=== PATIENT | male | born 1995 | race Caucasian/White ===

== ENCOUNTER 2020-09-10 12:27 | Outpatient (REF) | payer MEDICAID, SELFPAY ==
--- NOTE | ~2020-09-10 | US_ITS ---
EXAMINATION: US SOFT TISSUE HEAD AND/OR NECK CLINICAL INFORMATION: Lump left skull for months. COMPARISON: None TECHNIQUE: Soft tissue ultrasound over the left lateral frontal bone. FINDINGS: No abnormal soft tissue mass or fluid collection in the region of the patient's palpable findings. No lymphadenopathy. No inflammatory change. US/US soft tiss head and/or neck IMPRESSION: Unremarkable examination.
== END 2020-09-10 12:28 | disposition home or self-care (01) ==
LOC: HO.US 12:27
PROVIDERS: PCP Nurse Practitioner Family; Visit Provider Nurse Practitioner Family
DX: R22.0 Localized swelling, mass and lump, head (principal)
CPT/HCPCS: 76536

== ENCOUNTER → 2020-10-16 06:32 | Day surgery (SDC) | payer MEDICAID, SELFPAY ==
--- NOTE | 2020-10-14 13:34 | HO.ANESPROP2 ---
Documented by User: Randa Guzman 10/14/20 13:35 HPI - Anesthesia Eval Consult details Narrative: 25yo M MRI with Anesthesia,brain with contrast developmental delay PMFSH Past Medical History Medical History ADD (attention deficit disorder) Asthma Cognitive developmental delay Epistaxis Insomnia Social History Social History Advance Directives: No Advance Directives Information Provided: Yes Meds Allergies Allergy/AdvReac Type Severity Reaction Status Date / Time Penicillins Allergy Intermediate SWELLING Unverified 09/10/20 12:33 methylphenidate Allergy Unknown Verified 10/10/20 16:52 [From Concerta] Home Medications Medication Instructions Recorded Confirmed Last Taken Type acetaminophen 1,000 mg PO Q6H PRN 10/10/20 10/10/20 Unknown History albuterol sulfate 2 puff INHALATION Q4-6H PRN 10/10/20 10/10/20 Unknown History albuterol sulfate 2.5 mg INHALATION Q4-6H PRN 10/10/20 10/10/20 Unknown History calcium carbonate [Tums E-X] 300 mg PO BID 10/10/20 10/10/20 Unknown History cetirizine [Zyrtec] 10 mg PO DAILY 10/10/20 10/10/20 Unknown History cholecalciferol (vitamin D3) 50 mcg PO DAILY 10/10/20 10/10/20 Unknown History [Vitamin D3] citalopram [Celexa] 10 mg PO DAILY 10/10/20 10/10/20 Unknown History dextroamphetamine-amphetamine 30 mg PO DAILY 10/10/20 10/10/20 Unknown History [Adderall] fluticasone propionate [Flonase 2 spray INTRANASAL DAILY 10/10/20 10/10/20 Unknown History Allergy Relief] fluticasone propionate [Flovent 2 puff INHALATION BID 10/10/20 10/10/20 Unknown History HFA] multivitamin 1 tab PO DAILY 10/10/20 10/10/20 Unknown History omeprazole 20 mg PO DAILY 10/10/20 10/10/20 Unknown History trazodone 100 mg PO BEDTIME 10/10/20 10/10/20 Unknown History Exam Exam Date and Time: October 14, 2020 1334 Assessment and Plan Assessment Anesthesia Assessment: Chart Reviewed Documented by User: Марина Hutson 10/16/20 07:09 PMF Past Medical History Medical History ADD (attention deficit disorder) Asthma Cognitive developmental delay Epistaxis Insomnia Social History Social History Advance Directives: No Advance Directives Information Provided: Yes Meds Allergies Allergy/AdvReac Type Severity Reaction Status Date / Time Penicillins Allergy Intermediate SWELLING Unverified 09/10/20 12:33 methylphenidate Allergy Unknown Verified 10/10/20 16:52 [From Concerta] Home Medications Medication Instructions Recorded Confirmed Last Taken Type acetaminophen 1,000 mg PO Q6H PRN 10/10/20 10/10/20 Unknown History albuterol sulfate 2 puff INHALATION Q4-6H PRN 10/10/20 10/10/20 Unknown History albuterol sulfate 2.5 mg INHALATION Q4-6H PRN 10/10/20 10/10/20 Unknown History calcium carbonate [Tums E-X] 300 mg PO BID 10/10/20 10/10/20 Unknown History cetirizine [Zyrtec] 10 mg PO DAILY 10/10/20 10/10/20 Unknown History cholecalciferol (vitamin D3) 50 mcg PO DAILY 10/10/20 10/10/20 Unknown History [Vitamin D3] citalopram [Celexa] 10 mg PO DAILY 10/10/20 10/10/20 Unknown History dextroamphetamine-amphetamine 30 mg PO DAILY 10/10/20 10/10/20 Unknown History [Adderall] fluticasone propionate [Flonase 2 spray INTRANASAL DAILY 10/10/20 10/10/20 Unknown History Allergy Relief] fluticasone propionate [Flovent 2 puff INHALATION BID 10/10/20 10/10/20 Unknown History HFA] multivitamin 1 tab PO DAILY 10/10/20 10/10/20 Unknown History omeprazole 20 mg PO DAILY 10/10/20 10/10/20 Unknown History trazodone 100 mg PO BEDTIME 10/10/20 10/10/20 Unknown History Exam Airway Mallampati Class: II TM Dist: >3cm Neck ROM: Full Assessment and Plan Assessment Anesthesia Assessment: Anesthesia Plan Discussed and Chart Reviewed Final Anesthetic Review NPO: Yes ASA Class: II Final Preanesthetic Review: No Changes in Pt Med Stat, Meds/Allgs Chart Reviewed, Consent Obtained/Reviewed and Anes Risks/Benef Reviewed Patient Risk: Low Procedure Risk: Low Assessment/Block/Sedation in SS: Assess/Block/Sedation-SS Anesthetic Plan Anesthetic Plan: GA Disposition: Standard PACU
--- NOTE | ~2020-10-16 | MR_ITS ---
EXAMINATION: MR BRAIN WITHOUT AND WITH CONTRAST CLINICAL INFORMATION: Migraine headaches. Lump on skull. COMPARISON: No relevant prior imaging. TECHNIQUE: Multiplanar MR imaging of the brain was performed without and with contrast. A total of 4.5 mL Gadavist was utilized for this examination. FINDINGS: Postcontrast images reveal no abnormal mass or enhancement within the intracranial compartment. No intracranial mass effect or midline shift. No abnormal extra-axial collection. Lateral and third ventricles are normal. No hydrocephalus. Midline structures including the cervicomedullary junction are normal. No acute bone marrow signal changes. There is no acute territorial infarct. No pathological magnetic susceptibility artifact. Intracranial vascular flow voids are maintained. There is no mastoid or middle ear effusion. Mild paranasal sinus disease primarily affecting the ethmoid air cells. Globes and orbits are symmetric. MR/MR head/brain wo/w con IMPRESSION: Normal brain MRI.
[2020-10-16 07:04] VITALS: BP 106/61; PULSE 107; RESP 16; TEMP 36.4; O2SAT 98; BMI 22.6
[2020-10-16] MEDS: Lactated Ringers 1,000 ML 100 ML IVCONT (07:19)
[2020-10-16 09:11] VITALS: BP 101/57; PULSE 77; RESP 20; TEMP 36.4; O2SAT 99
[2020-10-16 09:17] VITALS: BP 104/61; PULSE 79; RESP 17; O2SAT 99
[2020-10-16 09:22] VITALS: BP 103/61; PULSE 78; RESP 16; O2SAT 100
[2020-10-16 09:26] VITALS: BP 103/67; PULSE 90; RESP 17; O2SAT 100
[2020-10-16 09:41] VITALS: BP 103/64; PULSE 79; RESP 16; TEMP 36.5; O2SAT 100
== END | disposition home or self-care (01) ==
PROVIDERS: Radiology Diagnostic Radiology; PCP Nurse Practitioner Family; Visit Provider Nurse Practitioner Family
DX: G43.109 Migraine with aura, not intractable, without status migrainosus (principal); R22.0 Localized swelling, mass and lump, head; R04.0 Epistaxis; F98.8 Other specified behavioral and emotional disorders with onset usually occurring in childhood and adolescence; F81.9 Developmental disorder of scholastic skills, unspecified; G47.01 Insomnia due to medical condition; J45.909 Unspecified asthma, uncomplicated; Z79.51 Long term (current) use of inhaled steroids; Z79.899 Other long term (current) drug therapy; Z88.0 Allergy status to penicillin; Z88.8 Allergy status to other drugs, medicaments and biological substances
CPT/HCPCS: 70553; A9585; J0171; J0461; J2250; J2370; J2405

== ENCOUNTER 2021-03-16 10:11 | Emergency (ER) | payer MEDICAID, SELFPAY ==
--- NOTE | ~2021-03-16 | CT_ITS ---
EXAMINATION: CT HEAD WITHOUT CONTRAST CLINICAL INFORMATION: Altered mental status change COMPARISON: None TECHNIQUE: Contiguous axial imaging was performed from the skull base to vertex without intravenous administration of contrast. This CT examination was performed using dose optimization techniques as appropriate, variously including the following: *Automated exposure control *Adjustment of mA and/or kV according to patient size (this includes techniques or standardized protocols for targeted exams where dose is matched to indication/reason for exam; i.e. extremities or head) *Use of iterative reconstruction technique DLP: 716 mGy-cm FINDINGS: There is no evidence of acute intracranial hemorrhage or territorial infarction. No abnormal mass effect or midline shift is seen. Guidry to white matter differentiation is well preserved. No extra-axial fluid collections are identified. The ventricles are normal in size. There is no abnormal attenuation within the brain parenchyma. The osseous structures and soft tissues are normal. The mastoid air cells and visualized portions of the paranasal sinuses are well aerated. CT/CT head/brain wo con IMPRESSION: No acute intracranial process seen
[2021-03-16 10:23] VITALS: BP 107/64; PULSE 115; RESP 16; TEMP 36.8; O2SAT 97; BMI 24.3
--- NOTE | 2021-03-16 11:16 | ED_ITS ---
HPI - General Adult General Chief complaint: General Medical Stated complaint: nose bleed Time Seen by Provider: 03/16/21 11:16 Source: patient Mode of arrival: ambulatory Limitations: no limitations History of Present Illness HPI narrative: This is a 25 years old patient with history of mental retardation presented to the emergency department because left epistaxis. And the mother also seems to think that he has been more confused. Denies any fever ,chills,vomiting Onset (ago): day(s) (2) Radiation: non-radiation Severity: moderate Quality: other (bleeding) Pain Consistency: constant Relieving factors: none Exacerbating factors: none Related Data Home Medications Medication Instructions Recorded Confirmed acetaminophen 500 mg tablet 1,000 mg PO Q6H PRN 10/10/20 10/10/20 albuterol sulfate 2.5 mg INHALATION Q4-6H PRN 10/10/20 10/10/20 albuterol sulfate 90 mcg/actuation 2 puff INHALATION Q4-6H PRN 10/10/20 10/10/20 aerosol inhaler calcium carbonate 300 mg (750 mg) 300 mg PO BID 10/10/20 10/10/20 chewable tablet (Tums E-X) cetirizine 10 mg tablet (Zyrtec) 10 mg PO DAILY 10/10/20 10/16/20 cholecalciferol (vitamin D3) 50 50 mcg PO DAILY 10/10/20 10/10/20 mcg (2,000 unit) capsule (Vitamin D3) citalopram 10 mg tablet (Celexa) 10 mg PO DAILY 10/10/20 10/10/20 dextroamphetamine-amphetamine 30 30 mg PO DAILY 10/10/20 10/10/20 mg tablet (Adderall) fluticasone propionate 44 2 puff INHALATION BID 10/10/20 10/10/20 mcg/actuation HFA aerosol inhaler (Flovent HFA) fluticasone propionate 50 2 spray INTRANASAL DAILY 10/10/20 10/10/20 mcg/actuation nasal spray,suspension (Flonase Allergy Relief) multivitamin 1 tab PO DAILY 10/10/20 10/10/20 omeprazole 20 mg capsule,delayed 20 mg PO DAILY 10/10/20 10/10/20 release trazodone 100 mg tablet 100 mg PO BEDTIME 05/20/21 05/20/21 Previous Rx's Medication Instructions Recorded sulfamethoxazole 800 1 tab PO BID #10 tab 03/16/21 mg-trimethoprim 160 mg tablet (Bactrim DS) Allergies Allergy/AdvReac Type Severity Reaction Status Date / Time Penicillins Allergy Intermediate SWELLING Verified 10/16/20 07:10 methylphenidate Allergy Unknown Verified 10/10/20 16:52 [From Concerta] Review of Systems Review of Systems: Yes all other systems are reviewed and are negative Constitutional: Constitutional: Denies fever(s) Cardiovascular: Cardiovascular: Denies dyspnea Respiratory: Respiratory: Denies dyspnea Gastrointestinal: Gastrointestinal: Denies abdominal pain [facility] Past Medical History Attestation statement: The following information was validated with the patient. Medical History ADD (attention deficit disorder) Asthma Cognitive developmental delay Epistaxis Insomnia Social History Social History Advance Directives: No Physical Exam Vital Signs: Vital Signs: Last Vital Signs Temp 98.3 F 03/16/21 10:23 Pulse 98 03/16/21 12:00 Resp 16 03/16/21 12:00 BP 123/75 03/16/21 12:00 Pulse Ox 99 03/16/21 12:00 Body Mass Index 24.3 Const: General: cooperative Nutritional Appearance: average body habitus HENMT: Head: Yes normal to inspection General nose exam: Epistaxis present on the left Mouth: Normal oral and palatal mucosa present Neck: Neck: Yes normal visual inspection and Yes full ROM Chest: Chest palpation & inspection: normal inspection of the chest Resp: Effort & Inspection: normal respiratory effort Auscultation: clear to auscultation bilaterally Cardio: Jugular venous distension: no JVD Rate: regular rate GI: Inspection: Yes normal to inspection Palpation (GI): Soft to palpation, not firm and nontender Skin: General skin exam: no rashes or lesions noted, elasticity normal and turgor normal Rashes: no rashes Course Course Course Narrative: nose was packed with Rapid ryno,labs obatined OK ,mother was concerned about confusion but neuro exan is normal and head ct negative and labs ok. will d/c pt home mother already has appointment with [facility] will call in am as well to let them know that nose was packed. Pt has alllergy to PCN nd interation meds for macrolide will prescribe Batrim because packing on Procedures Epistaxis Control Time Out Performed: Yes Nostril: Yes left Nose prepped with: Yes lidocaine Direct inspection method: Yes nasal speculum Clots removed by: Yes blowing nose Epistaxis treatment: Yes nasal tampon Results of treatment: Yes bleeding controlled Complications: Yes none Medical Decision Making Lab Data Result diagrams: 03/16/21 11:43 03/16/21 11:43 Labs: Lab Results 03/16/21 03/16/21 03/16/21 Range/Units 11:43 11:43 11:43 WBC 4.2 L (4.8-10.8) X10*3/uL RBC 4.25 L (4.60-5.80) X10*6/uL Hgb 13.7 L (14.0-18.0) g/dl Hct 38.1 L (42-52) % MCV 89.6 (80-98) fL MCH 32.2 (27.0-33.0) pg MCHC 36.0 (31.0-36.0) g/dl RDW 11.1 (11.0-16.0) % Plt Count 183 (160-400) X10*3/uL MPV 10.7 (9.4-12.4) fL Immature Gran % (Auto) 0.5 H (0.0-0.4) % Neut % (Auto) 52.6 (45-73) % Lymph % (Auto) 30.9 (20-40) % Polk % (Auto) 11.7 H (2-11) % Eos % (Auto) 3.6 (0-4) % Baso % (Auto) 0.7 (0-2) % Lymph # (Auto) 1.3 (1.2-4.9) X10*3/uL [place] # (Auto) 0.5 (0.1-1.2) X10*3/uL Eos # (Auto) 0.2 (0.0-0.4) X10*3/uL Baso # (Auto) 0.0 (0.0-0.2) X10*3/uL Abs Immat Gran (auto) 0.02 (0.00-0.03) X10*3/uL Absolute Neuts (auto) 2.2 (2.0-8.3) X10*3/uL Absolute Nucleated RBC 0.000 (0.0-0.012) X10*3/uL Nucleated RBC % (auto) 0.0 (0.0-0.2) /100WBC PT 11.6 (9.9-13.0) SEC INR 1.0 (0.9-1.1) APTT 32.0 (24.1-38.0) SEC Sodium 139 (135-145) mmol/L Potassium 3.9 (3.3-5.1) mmol/L Chloride 104 (96-108) mmol/L Carbon Dioxide 29 (22-29) mmol/L Anion Gap 10 L (12-20) BUN 17 H (9-16) mg/dL Creatinine 1.20 (0.5-1.4) mg/dL Estim Creat Clear Calc 90.2 Estimated GFR > 60 Random Glucose 97 (60-115) mg/dL Calcium 9.5 (8.4-10.2) mg/dL Total Bilirubin 0.8 (0.0-1.0) mg/dL AST 23 (5-37) U/L ALT 16 (0-40) U/L Alkaline Phosphatase 62 (39-117) U/L Total Protein 6.6 (6.5-8.0) g/dL Albumin 4.3 (3.5-5.0) g/dL Imaging Data CT scan - head: Radiologist's impression: e (this includes techniques or standardized protocols for targeted exams where dose is matched to indication/reason for exam; i.e. extremities or head) *Use of iterative reconstruction technique DLP: 716 mGy-cm FINDINGS: There is no evidence of acute intracranial hemorrhage or territorial infarction. No abnormal mass effect or midline shift is seen. Guidry to white matter differentiation is well preserved. No extra-axial fluid collections are identified. The ventricles are normal in size. There is no abnormal attenuation within the brain parenchyma. The osseous structures and soft tissues are normal. The mastoid air cells and visualized portions of the paranasal sinuses are well aerated. ? CT/CT head/brain wo con IMPRESSION: No acute intracranial process seen Dictated By: Shree Hampton MD Signed By: <Electronically signed by Shree Hampton MD in OV> 10/24/21 1244 DD/ 1132 Discharge Plan Discharge Clinical Impression: Epistaxis Patient Disposition: Home, Self-Care Instructions: Nosebleed (ED) Additional Instructions: keep pakcking on,follow up with your ENT or you can call Dr Kapoor.packing need to be removed in 3-4 Days.Take antibiotic because packing Prescriptions: New sulfamethoxazole-trimethoprim [Bactrim DS] 800-160 mg tablet 1 tab PO BID Qty: 10 RF: 0 No Action multivitamin Tablet 1 tab PO DAILY RF: 0 albuterol sulfate 2.5 mg /3 mL (0.083 %) Solution For Nebulization 2.5 mg INHALATION Q4-6H PRN (Reason: Shortness Of Breath Or Wheezing) RF: 0 citalopram [Celexa] 10 mg Tablet 10 mg PO DAILY RF: 0 acetaminophen 500 mg Tablet 1,000 mg PO Q6H PRN (Reason: Pain) RF: 0 dextroamphetamine-amphetamine [Adderall] 30 mg Tablet 30 mg PO DAILY RF: 0 trazodone 100 mg Tablet 100 mg PO BEDTIME RF: 0 Flovent HFA 44 mcg/actuation Hfa Aerosol Inhaler 2 puff INHALATION BID RF: 0 omeprazole 20 mg Capsule,Delayed Release(Dr/Ec) 20 mg PO DAILY RF: 0 albuterol sulfate 90 mcg/actuation Hfa Aerosol Inhaler 2 puff INHALATION Q4-6H PRN (Reason: Shortness Of Breath Or Wheezing) RF: 0 fluticasone propionate [Flonase Allergy Relief] 50 mcg/actuation [place],Suspension 2 spray INTRANASAL DAILY RF: 0 cetirizine [Zyrtec] 10 mg Tablet 10 mg PO DAILY RF: 0 calcium carbonate [Tums E-X] 300 mg (750 mg) Tablet,Chewable 300 mg PO BID RF: 0 cholecalciferol (vitamin D3) [Vitamin D3] 50 mcg (2,000 unit) Capsule 50 mcg PO DAILY RF: 0 Referrals: Xu Kapoor [Physician] - 2 days
[2021-03-16] MEDS: Lidocaine HCl Viscous 2 % 15 ML SOLUTION MUCOUS MEM (11:37)
[2021-03-16 11:52] LABS: MANUAL DIFF FLAG NO
[2021-03-16 11:53] LABS: Basophils Percent Auto 0.7 % (0-2); Eosinophils Absolute Auto 0.2 X10*3/uL (0.0-0.4); Eosinophils Percent Auto 3.6 % (0-4); Hematocrit 38.1 % (42-52); Hemoglobin 13.7 g/dl (14.0-18.0); Imm Gran Abs Auto 0.02 X10*3/uL (0.00-0.03); Imm Gran Pct Auto 0.5 % (0.0-0.4); Lymphocytes Absolute Auto 1.3 X10*3/uL (1.2-4.9); Lymphocytes Percent Auto 30.9 % (20-40); Mean Corpuscular Hemoglobin 32.2 pg (27.0-33.0); Mean Corpuscular Volume 89.6 fL (80-98); Mean Platelet Volume 10.7 fL (9.4-12.4); Monocytes Absolute Auto 0.5 X10*3/uL (0.1-1.2); Monocytes Percent Auto 11.7 % (2-11); Neutrophils Absolute Auto 2.2 X10*3/uL (2.0-8.3); Neutrophils Percent Auto 52.6 % (45-73); Platelet Count 183 X10*3/uL (160-400); Red Blood Count 4.25 X10*6/uL (4.60-5.80); Red Cell Distribution Width 11.1 % (11.0-16.0); White Blood Count 4.2 X10*3/uL (4.8-10.8)
[2021-03-16 11:58] LABS: Prothrombin Time 11.6 SEC (9.9-13.0)
[2021-03-16 12:00] VITALS: BP 123/75; PULSE 98; RESP 16; O2SAT 99
[2021-03-16 12:08] LABS: Alanine Aminotransferase 16 U/L (0-40); Albumin Level 4.3 g/dL (3.5-5.0); Alkaline Phosphatase 62 U/L (39-117); Anion Gap 10 (12-20); Aspartate Amino Transferase 23 U/L (5-37); Bilirubin Total 0.8 mg/dL (0.0-1.0); Blood Urea Nitrogen 17 mg/dL (9-16); Calcium 9.5 mg/dL (8.4-10.2); Carbon Dioxide 29 mmol/L (22-29); Chloride 104 mmol/L (96-108); Creatinine Clr Calc Pharmacy 90.2; Estimated Glomerular Filt Rate > 60; Glucose Random 97 mg/dL (60-115); Potassium 3.9 mmol/L (3.3-5.1); Sodium 139 mmol/L (135-145); Total Protein 6.6 g/dL (6.5-8.0)
== END 2021-03-16 13:52 | disposition home or self-care (01) ==
PROVIDERS: Emergency Provider Emergency Medicine; PCP Nurse Practitioner Primary Care
DX: R04.0 Epistaxis (principal); R41.82 Altered mental status, unspecified; Z79.899 Other long term (current) drug therapy
CPT/HCPCS: 30901; 36415; 70450; 80053; 85025; 85610; 85730; 99284

== ENCOUNTER 2021-03-20 08:44 | Emergency (ER) | payer MEDICAID, SELFPAY ==
[2021-03-20 08:53] VITALS: BP 109/71; PULSE 100; RESP 18; TEMP 36.6; O2SAT 98; BMI 25.0
--- NOTE | 2021-03-20 09:10 | ED_ITS ---
HPI - General Adult General Chief complaint: General Medical Stated complaint: remove nasal packing Time Seen by Provider: 03/20/21 09:10 Source: patient Limitations: no limitations and language barrier (technology resource teacher used) History of Present Illness HPI narrative: Patient returns to the ER to have nasal packing removed of the left near. Packing was placed on Wednesday. Patient has follow-up appointment with ENT on March 25. Patient and family states no recent bleeding around the packing or in the back of his throat. No nausea vomiting fever chills or other complaints at this time. Related Data Home Medications Medication Instructions Recorded Confirmed acetaminophen 500 mg tablet 1,000 mg PO Q6H PRN 10/10/20 10/10/20 albuterol sulfate 2.5 mg INHALATION Q4-6H PRN 10/10/20 10/10/20 albuterol sulfate 90 mcg/actuation 2 puff INHALATION Q4-6H PRN 10/10/20 10/10/20 aerosol inhaler calcium carbonate 300 mg (750 mg) 300 mg PO BID 10/10/20 10/10/20 chewable tablet (Tums E-X) cetirizine 10 mg tablet (Zyrtec) 10 mg PO DAILY 10/10/20 10/16/20 cholecalciferol (vitamin D3) 50 50 mcg PO DAILY 10/10/20 10/10/20 mcg (2,000 unit) capsule (Vitamin D3) citalopram 10 mg tablet (Celexa) 10 mg PO DAILY 10/10/20 10/10/20 dextroamphetamine-amphetamine 30 30 mg PO DAILY 10/10/20 10/10/20 mg tablet (Adderall) fluticasone propionate 44 2 puff INHALATION BID 10/10/20 10/10/20 mcg/actuation HFA aerosol inhaler (Flovent HFA) fluticasone propionate 50 2 spray INTRANASAL DAILY 10/10/20 10/10/20 mcg/actuation nasal spray,suspension (Flonase Allergy Relief) multivitamin 1 tab PO DAILY 10/10/20 10/10/20 omeprazole 20 mg capsule,delayed 20 mg PO DAILY 10/10/20 10/10/20 release trazodone 100 mg tablet 100 mg PO BEDTIME 10/10/20 10/10/20 Previous Rx's Medication Instructions Recorded sulfamethoxazole 800 1 tab PO BID #10 tab 03/16/21 mg-trimethoprim 160 mg tablet (Bactrim DS) Allergies Allergy/AdvReac Type Severity Reaction Status Date / Time Penicillins Allergy Intermediate SWELLING Verified 10/16/20 07:10 methylphenidate Allergy Unknown Verified 10/10/20 16:52 [From IgnitAd] Review of Systems Review of Systems: Constitutional : No Weight loss, No Fever, No Chills ENT/Mouth : No bleeding around the nasal packing no sore throat patient has not vomited any blood Cardiovascular : No Chest Pain, No SOB, Gastrointestinal : No Nausea, No Vomiting Musculoskeletal : No joint pain, No Myalgias, No Joint Swelling Neuro : No headache no dizziness Psych : No Anxiety/Panic, No Depression Heme/Lymph: No Bruising, No Bleeding PMFSH Past Medical History Attestation statement: The following information was validated with the patient. Medical History ADD (attention deficit disorder) Asthma Cognitive developmental delay Epistaxis Insomnia Social History Social History Advance Directives: No Advance Directives Information Provided: Yes Physical Exam Vital Signs: Vital Signs: Last Vital Signs Temp 98 F 03/20/21 08:53 Pulse 100 03/20/21 08:53 Resp 18 03/20/21 08:53 BP 109/71 03/20/21 08:53 Pulse Ox 98 03/20/21 08:53 Body Mass Index 25.0 vital signs have been reviewed as normal and appeared to be correct. Blood pressure normal. Heart rate normal. Respiration rate normal. Temperature normal. Oxygen saturation normal. Appearance: Alert. Oriented X3. No acute distress. Head: Normal external exam. Normocephalic. Atraumatic. Eyes: PERRLA. EOMI. ENT: Pharynx normal. Uvula midline. Moist mucous membranes. No blood noted in the oral pharynx. No active bleeding of the left or right nasal naris Neck: Soft full range of motion, no JVD CVS: Heart regular rate and rhythm no murmurs and rubs Respiratory: Breath sounds are clear to auscultation bilaterally. No accessory muscle use noted. Skin: Skin warm and dry. Normal skin color. Normal skin turgor. No rashes/lesions/lacerations noted. Extremities: No lower extremity edema. Extremities exhibit normal range of m otion. Extremities nontender. Neuro: Oriented X 3. No motor deficit. No sensory deficit. Reflexes normal. Course Course Course Narrative: Epistaxis resolved Nasal packing removal Rhino rocket in place in the left nasal Nare 10 cc syringe used to deflate the balloon removed tolerated well patient has no active bleeding throat is also clear patient has follow-up appointment in ENT on March 25. Discharge Plan Discharge Clinical Impression: Encounter for removal of nasal packing Patient Disposition: Home, Self-Care Instructions: Nosebleed (ED) Additional Instructions: Follow-up with your nose and throat doctor as directed If nose rebleeds hold direct pressure for at least 1-1/2 hour Prescriptions: No Action multivitamin Tablet 1 tab PO DAILY RF: 0 albuterol sulfate 2.5 mg /3 mL (0.083 %) Solution For Nebulization 2.5 mg INHALATION Q4-6H PRN (Reason: Shortness Of Breath Or Wheezing) RF: 0 citalopram [Celexa] 10 mg Tablet 10 mg PO DAILY RF: 0 acetaminophen 500 mg Tablet 1,000 mg PO Q6H PRN (Reason: Pain) RF: 0 dextroamphetamine-amphetamine [Adderall] 30 mg Tablet 30 mg PO DAILY RF: 0 trazodone 100 mg Tablet 100 mg PO BEDTIME RF: 0 Flovent HFA 44 mcg/actuation Hfa Aerosol Inhaler 2 puff INHALATION BID RF: 0 omeprazole 20 mg Capsule,Delayed Release(Dr/Ec) 20 mg PO DAILY RF: 0 albuterol sulfate 90 mcg/actuation Hfa Aerosol Inhaler 2 puff INHALATION Q4-6H PRN (Reason: Shortness Of Breath Or Wheezing) RF: 0 fluticasone propionate [Flonase Allergy Relief] 50 mcg/actuation [place],Suspension 2 spray INTRANASAL DAILY RF: 0 cetirizine [Zyrtec] 10 mg Tablet 10 mg PO DAILY RF: 0 calcium carbonate [Tums E-X] 300 mg (750 mg) Tablet,Chewable 300 mg PO BID RF: 0 cholecalciferol (vitamin D3) [Vitamin D3] 50 mcg (2,000 unit) Capsule 50 mcg PO DAILY RF: 0 sulfamethoxazole-trimethoprim [Bactrim DS] 800-160 mg tablet 1 tab PO BID Qty: 10 RF: 0
== END 2021-03-20 09:23 | disposition home or self-care (01) ==
PROVIDERS: Emergency Provider Emergency Medicine; PCP Nurse Practitioner Primary Care
DX: Z48.01 Encounter for change or removal of surgical wound dressing (principal); R04.0 Epistaxis
CPT/HCPCS: 99283

== ENCOUNTER 2021-08-07 11:22 | Emergency (ER) | payer MEDICAID, SELFPAY ==
[2021-08-07 11:38] VITALS: BP 106/70; PULSE 110; RESP 19; TEMP 36.6; O2SAT 98; BMI 23.1
[2021-08-07] MEDS: Oxymetazoline HCl 0.05 % Nasal 15 ML SPRAY 2 SPRAY NOSTRIL-B (12:19)
--- NOTE | 2021-08-07 12:25 | ED.EPISTAXIS ---
History of Present Illness General Chief Complaint: General Medical Stated Complaint: excessive bleeding from Time Seen by Provider: 08/07/21 12:04 Source: patient, family and court interpreter Mode of arrival: ambulatory Limitations: no limitations History of Present Illness HPI Narrative: 26 y/o male with history of developmental delay, recurrent epistaxis presents to the ER with left sided nose bleed that started this morning. Mother reports history of a surgery 4 years ago with ENT due to bleeding as well as history of cauterization 2 years ago. She denies any trauma this morning that she is aware of and he just started bleeding. They placed a tissue in the nose and came to the ER for evaluation given his history. He is not on aspirin or blood thinners. Location: Yes left naris Onset/current episode: Yes hour(s) Duration: Yes now resolved Pertinent past history: Yes history of previous nose bleed Context: Yes history of previous nose bleed Related Data Home Medications Medication Instructions Recorded Confirmed acetaminophen 500 mg tablet 1,000 mg PO Q6H PRN 10/10/20 10/10/20 albuterol sulfate 2.5 mg INHALATION Q4-6H PRN 10/10/20 10/10/20 albuterol sulfate 90 mcg/actuation 2 puff INHALATION Q4-6H PRN 10/10/20 10/10/20 aerosol inhaler calcium carbonate 300 mg (750 mg) 300 mg PO BID 10/10/20 10/10/20 chewable tablet (Tums E-X) cetirizine 10 mg tablet (Zyrtec) 10 mg PO DAILY 10/10/20 10/16/20 cholecalciferol (vitamin D3) 50 50 mcg PO DAILY 10/10/20 10/10/20 mcg (2,000 unit) capsule (Vitamin D3) citalopram 10 mg tablet (Celexa) 10 mg PO DAILY 10/10/20 10/10/20 dextroamphetamine-amphetamine 30 30 mg PO DAILY 10/10/20 10/10/20 mg tablet (Adderall) fluticasone propionate 44 2 puff INHALATION BID 10/10/20 10/10/20 mcg/actuation HFA aerosol inhaler (Flovent HFA) fluticasone propionate 50 2 spray INTRANASAL DAILY 10/10/20 10/10/20 mcg/actuation nasal spray,suspension (Flonase Allergy Relief) multivitamin 1 tab PO DAILY 10/10/20 10/10/20 omeprazole 20 mg capsule,delayed 20 mg PO DAILY 10/10/20 10/10/20 release trazodone 100 mg tablet 100 mg PO BEDTIME 10/10/20 10/10/20 Previous Rx's Medication Instructions Recorded sulfamethoxazole 800 1 tab PO BID #10 tab 03/16/21 mg-trimethoprim 160 mg tablet (Bactrim DS) Allergies Allergy/AdvReac Type Severity Reaction Status Date / Time Penicillins Allergy Intermediate SWELLING Verified 10/16/20 07:10 methylphenidate Allergy Unknown Verified 10/10/20 16:52 [From [employer]] Review of Systems Review of Systems: Constitutional: No Fever, No Chills ENT/Mouth: No sore throat, No Rhinorrhea, No Swallowing Difficulty, +nose bleed Cardiovascular: No Chest Pain, No SOB Respiratory: No Cough, No Sputum Gastrointestinal: No Nausea, No Vomiting Skin: No Skin Lesions, No rash Neuro: No Weakness, No Dizziness, + Headache Heme/Lymph: No Bruising, No Lymphadenopathy PMFSH Past Medical History Medical History ADD (attention deficit disorder) Asthma Cognitive developmental delay Epistaxis Insomnia Social History Social History Advance Directives: No Advance Directives Information Provided: No Physical Exam Vital Signs: Vital Signs: Last Vital Signs Temp 98 F 08/07/21 11:38 Pulse 110 H 08/07/21 11:38 Resp 19 08/07/21 11:38 BP 106/70 08/07/21 11:38 Pulse Ox 98 08/07/21 11:38 BMI result Body Mass Index 23.1 Appearance: Alert, tissue in left nare, no active bleeding noted. No acute distress. HEENT: Left nare tissue removed, there is dried blood in the left nostril with no active bleeding. Normal posterior oropharynx with no blood seen in the back of the throat. Normal appearance of the right knee air. CVS: Normal heart rate and rhythm. Pulses normal. Respiratory: No respiratory distress. Skin: Skin warm and dry. Normal skin color. Normal skin turgor. No rashes. Extremities: normal inspection, normal ROM Neuro: awake and alert, answers questions slowly but appropriately. nonfocal Course Course Course Narrative: 26-year-old male presents to the ER with left anterior epistaxis. No active bleeding on arrival. He is not on anticoagulation. He has a history of multiple nosebleeds in the past, requiring intervention. Will give intranasal Afrin and apply clamp to ensure bleeding has completely resolved. Will monitor closely. Reevaluation(s) Reevaluation #1: Clamp was removed and no further bleeding is witnessed at this time will continue to monitor. Reevaluation #2: Patient remains stable. No active bleeding. He is stable for discharge home. Critical Care Time Critical Care Time Critical Care Time: No Discharge Plan Discharge Clinical Impression: Acute anterior epistaxis Patient Disposition: Home, Self-Care Instructions: Nosebleed (ED) Additional Instructions: Do not blow your nose. Use nasal saline to keep the membranes moist and prevent further bleeding If recurrent bleeding occurs use Afrin nose spray and apply the clamp for 15 minutes. If bleeding persists despite this call your doctor or come back to the ER for further evaluation. Prescriptions: No Action multivitamin Tablet 1 tab PO DAILY 0RF albuterol sulfate 2.5 mg /3 mL (0.083 %) Solution For Nebulization 2.5 mg INHALATION Q4-6H PRN (Reason: Shortness Of Breath Or Wheezing) 0RF citalopram [Celexa] 10 mg Tablet 10 mg PO DAILY 0RF acetaminophen 500 mg Tablet 1,000 mg PO Q6H PRN (Reason: Pain) 0RF dextroamphetamine-amphetamine [Adderall] 30 mg Tablet 30 mg PO DAILY 0RF trazodone 100 mg Tablet 100 mg PO BEDTIME 0RF Flovent HFA 44 mcg/actuation Hfa Aerosol Inhaler 2 puff INHALATION BID 0RF omeprazole 20 mg Capsule,Delayed Release(Dr/Ec) 20 mg PO DAILY 0RF albuterol sulfate 90 mcg/actuation Hfa Aerosol Inhaler 2 puff INHALATION Q4-6H PRN (Reason: Shortness Of Breath Or Wheezing) 0RF fluticasone propionate [Flonase Allergy Relief] 50 mcg/actuation [place],Suspension 2 spray INTRANASAL DAILY 0RF cetirizine [Zyrtec] 10 mg Tablet 10 mg PO DAILY 0RF calcium carbonate [Tums E-X] 300 mg (750 mg) Tablet,Chewable 300 mg PO BID 0RF cholecalciferol (vitamin D3) [Vitamin D3] 50 mcg (2,000 unit) Capsule 50 mcg PO DAILY 0RF sulfamethoxazole-trimethoprim [Bactrim DS] 800-160 mg tablet 1 tab PO BID Qty: 10 0RF
[2021-08-07] MEDS: Acetaminophen 325 MG TABLET 975 MG PO (12:47)
== END 2021-08-07 13:17 | disposition home or self-care (01) ==
PROVIDERS: Emergency Provider Emergency Medicine; PCP Nurse Practitioner Primary Care
DX: R04.0 Epistaxis (principal)
CPT/HCPCS: 99283; 99284

== ENCOUNTER 2021-09-17 08:01 | Emergency (ER) | payer MEDICAID, SELFPAY ==
[2021-09-17 08:13] VITALS: BP 114/70; PULSE 105; RESP 16; TEMP 36.2; O2SAT 97; BMI 21.9
--- NOTE | 2021-09-17 08:44 | ED.GENADULT ---
HPI - General Adult General Chief complaint: General Medical Stated complaint: Facial swelling Time Seen by Provider: 09/17/21 08:25 Source: patient and family Mode of arrival: ambulatory Limitations: no limitations History of Present Illness MD complaint: sinus pain, facial swelling, resolved blood nose Onset (ago): day(s) (1) Location: face Radiation: non-radiation Severity: mild Quality: aching and dull Pain Consistency: constant Relieving factors: none Exacerbating factors: movement (of face) Associated symptoms: other (resolved bloody nose, facial swelling improved, felt his L eye was blurry but can see - using his glasses) Treatments prior to arrival: none Related Data Home Medications Medication Instructions Recorded Confirmed acetaminophen 500 mg tablet 1,000 mg PO Q6H PRN 10/10/20 10/10/20 albuterol sulfate 2.5 mg INHALATION Q4-6H PRN 10/10/20 10/10/20 albuterol sulfate 90 mcg/actuation 2 puff INHALATION Q4-6H PRN 10/10/20 10/10/20 aerosol inhaler calcium carbonate 300 mg (750 mg) 300 mg PO BID 10/10/20 10/10/20 chewable tablet (Tums E-X) cetirizine 10 mg tablet (Zyrtec) 10 mg PO DAILY 10/10/20 10/16/20 cholecalciferol (vitamin D3) 50 50 mcg PO DAILY 10/10/20 10/10/20 mcg (2,000 unit) capsule (Vitamin D3) citalopram 10 mg tablet (Celexa) 10 mg PO DAILY 10/10/20 10/10/20 dextroamphetamine-amphetamine 30 30 mg PO DAILY 10/10/20 10/10/20 mg tablet (Adderall) fluticasone propionate 44 2 puff INHALATION BID 10/10/20 10/10/20 mcg/actuation HFA aerosol inhaler (Flovent HFA) fluticasone propionate 50 2 spray INTRANASAL DAILY 10/10/20 10/10/20 mcg/actuation nasal spray,suspension (Flonase Allergy Relief) multivitamin 1 tab PO DAILY 10/10/20 10/10/20 omeprazole 20 mg capsule,delayed 20 mg PO DAILY 10/10/20 10/10/20 release trazodone 100 mg tablet 100 mg PO BEDTIME 10/10/20 10/10/20 Previous Rx's Medication Instructions Recorded sulfamethoxazole 800 1 tab PO BID #10 tab 03/16/21 mg-trimethoprim 160 mg tablet (Bactrim DS) doxycycline hyclate 100 mg tablet 100 mg PO BID 7 Days #14 tab 09/17/21 Allergies Allergy/AdvReac Type Severity Reaction Status Date / Time Penicillins Allergy Intermediate SWELLING Verified 10/16/20 07:10 methylphenidate Allergy Unknown Verified 10/10/20 16:52 [From REH] Review of Systems Review of Systems: Constitutional : no Fever, no Chills, no fatigue, no Malaise ENT/Mouth : no sore throat, positive runny nose, pos sinus congestion, pos resolved epistaxis, pos sinus pain Eyes: No Discharge Cardiovascular : No Chest Pain, No SOB Respiratory : No Cough, No Sputum Gastrointestinal : No Nausea, No Vomiting, No Diarrhea Genitourinary : No Dysuria, No Urinary Frequency Musculoskeletal : no Myalgia Skin : No rash Neuro : No Headache PMFSH Past Medical History Medical History ADD (attention deficit disorder) Asthma Cognitive developmental delay Epistaxis Insomnia Social History Social History (Updated 09/17/21 @ 08:50 by Jennifer De Jesus DO) Patient Tobacco Use Status: Never used Tobacco Advance Directives: No Advance Directives Information Provided: No Physical Exam ED Vital Signs: Vital Signs - 24 hr 09/17/21 08:13 Temperature 97.1 F Pulse Rate 105 H Respiratory Rate 16 Blood Pressure 114/70 Pulse Oximetry 97 BMI result Body Mass Index 21.9 Appearance: Alert. Oriented X3. No acute distress. Eyes: Pupils equal, round and reactive to light. ENT: Pharynx normal. L TM normal, dried blood L anterior nasal septum, boggy turbinates L nose, max sinus ttp mild swelling overlying normal skin, EOM intact no pain, normal vision with glasses, PERRL, no bulging of eyes Neck: Normal inspection. Neck supple. CVS: Normal heart rate and rhythm. Pulses normal. Respiratory: No respiratory distress. Breath sounds normal. Abdomen: Soft and nontender. Skin: Skin warm and dry. Normal skin color. Normal skin turgor. Extremities: No lower extremity edema. No calf ttp Neuro: Oriented X 3. No motor deficit. No sensory deficit. Medical Decision Making MDM Narrative Medical decision making narrative: 26 yo male with hx of asthma, sinusitis, developmental delay here with c/o nose bleed yesterday and now has very minimal swelling and pain over L maxillary sinus - L TM normal, dried blood on anterior septum. He has no pain with EOM, his vision is intact with glasses. PERRL - start on doxy stable for DC Discharge Plan Discharge Clinical Impression: Sinusitis Qualifiers: Sinusitis location: maxillary Chronicity: acute Recurrence: non-recurrent Qualified Code(s): J01.00 - Acute maxillary sinusitis, unspecified Patient Disposition: Home, Self-Care Instructions: Sinusitis (ED) Additional Instructions: return to ED for any worsening symptoms or concerns take medicine with a meal and full glass of water Prescriptions: New doxycycline hyclate 100 mg tablet 100 mg PO BID 7 Days Qty: 14 0RF Rx Instructions: take with a meal and full glass of water No Action multivitamin Tablet 1 tab PO DAILY 0RF albuterol sulfate 2.5 mg /3 mL (0.083 %) Solution For Nebulization 2.5 mg INHALATION Q4-6H PRN (Reason: Shortness Of Breath Or Wheezing) 0RF citalopram [Celexa] 10 mg Tablet 10 mg PO DAILY 0RF acetaminophen 500 mg Tablet 1,000 mg PO Q6H PRN (Reason: Pain) 0RF dextroamphetamine-amphetamine [Adderall] 30 mg Tablet 30 mg PO DAILY 0RF trazodone 100 mg Tablet 100 mg PO BEDTIME 0RF Flovent HFA 44 mcg/actuation Hfa Aerosol Inhaler 2 puff INHALATION BID 0RF omeprazole 20 mg Capsule,Delayed Release(Dr/Ec) 20 mg PO DAILY 0RF albuterol sulfate 90 mcg/actuation Hfa Aerosol Inhaler 2 puff INHALATION Q4-6H PRN (Reason: Shortness Of Breath Or Wheezing) 0RF fluticasone propionate [Flonase Allergy Relief] 50 mcg/actuation [place],Suspension 2 spray INTRANASAL DAILY 0RF cetirizine [Zyrtec] 10 mg Tablet 10 mg PO DAILY 0RF calcium carbonate [Tums E-X] 300 mg (750 mg) Tablet,Chewable 300 mg PO BID 0RF cholecalciferol (vitamin D3) [Vitamin D3] 50 mcg (2,000 unit) Capsule 50 mcg PO DAILY 0RF sulfamethoxazole-trimethoprim [Bactrim DS] 800-160 mg tablet 1 tab PO BID Qty: 10 0RF Referrals: Vicki Licea, [employer] [Primary Care Provider] - 2 days (if not better)
[2021-09-17 08:59] VITALS: BP 117/71; PULSE 90; RESP 16; TEMP 36.8; O2SAT 96
[2021-09-17] MEDS: Ibuprofen 600 MG TABLET PO (09:15)
== END 2021-09-17 09:19 | disposition home or self-care (01) ==
PROVIDERS: Emergency Provider Emergency Medicine; PCP Nurse Practitioner Primary Care
DX: J01.00 Acute maxillary sinusitis, unspecified (principal); J45.909 Unspecified asthma, uncomplicated
CPT/HCPCS: 99283; 99284

== ENCOUNTER 2022-02-15 12:52 | Emergency (ER) | payer MEDICAID, SELFPAY ==
--- NOTE | ~2022-02-15 | XR_ITS ---
EXAMINATION: XR CHEST CLINICAL INFORMATION: Pneumonia COMPARISON: None TECHNIQUE: Frontal view of the chest was obtained. FINDINGS: No significant abnormality is noted involving the heart, lungs, mediastinum, bony thorax or soft tissues. XR/XR chest 1V IMPRESSION: Unremarkable examination.
[2022-02-15 13:06] VITALS: BP 116/57; PULSE 103; RESP 16; TEMP 37.1; O2SAT 96; BMI 21.8
[2022-02-15 13:46] LABS: IDNOW Serial# 9DB6401D; Influenza A Negative (Negative); Influenza B2 Negative (Negative)
[2022-02-15 13:47] LABS: COVID-19 Test Negative (Negative); IDNOW Serial# 16C4AD1C
--- NOTE | 2022-02-15 13:56 | ED_ITS ---
HPI - Asthma General Chief Complaint: Asthma Stated Complaint: sob Time Seen by Provider: 02/15/22 13:48 Source: patient Mode of arrival: ambulatory Limitations: no limitations History of Present Illness HPI Narrative: 26-year-old male with history of asthma and mental delay brought to the ED for coughing, fever, and chest tightness since . Mother and patient states coughing phlegm is clear. States patient is still coughing even after use of albuterol inhaler.: Patient denies recent long travel, recent surgery, estrogen use, leg swelling, calf pain, coughing up blood, pleurisy, chest pain, or short ness of breath Related Data Home Medications Medication Instructions Recorded Confirmed acetaminophen 500 mg tablet 1,000 mg PO Q6H PRN Pain 10/10/20 10/10/20 albuterol sulfate 2.5 mg/3 mL 2.5 mg inhalation Q4-6H PRN 10/10/20 10/10/20 (0.083 %) solution for nebulization Shortness Of Breath Or Wheezing albuterol sulfate 90 mcg/actuation 2 puff inhalation Q4-6H PRN 10/10/20 10/10/20 aerosol inhaler Shortness Of Breath Or Wheezing calcium carbonate 300 mg (750 mg) 300 mg PO BID 10/10/20 10/10/20 chewable tablet (Tums E-X) cetirizine 10 mg tablet (Zyrtec) 10 mg PO DAILY 10/10/20 10/16/20 cholecalciferol (vitamin D3) 50 50 mcg PO DAILY 10/10/20 10/10/20 mcg (2,000 unit) capsule (Vitamin D3) citalopram 10 mg tablet (Celexa) 10 mg PO DAILY 10/10/20 10/10/20 dextroamphetamine-amphetamine 30 30 mg PO DAILY 10/10/20 10/10/20 mg tablet (Adderall) fluticasone propionate 44 2 puff inhalation BID 10/10/20 10/10/20 mcg/actuation HFA aerosol inhaler (Flovent HFA) fluticasone propionate 50 2 spray intranasal DAILY 10/10/20 10/10/20 mcg/actuation nasal spray,suspension (Flonase Allergy Relief) multivitamin 1 tab PO DAILY 10/10/20 10/10/20 omeprazole 20 mg capsule,delayed 20 mg PO DAILY 10/10/20 10/10/20 release trazodone 100 mg tablet 100 mg PO BEDTIME 10/10/20 10/10/20 Previous Rx's Medication Instructions Recorded sulfamethoxazole 800 1 tab PO BID #10 tabs 03/16/21 mg-trimethoprim 160 mg tablet (Bactrim DS) doxycycline hyclate 100 mg tablet 100 mg PO BID 7 days #14 tabs 09/17/21 benzonatate 100 mg capsule 100 mg PO TID PRN cough 5 days #15 02/15/22 caps prednisone 20 mg tablet 40 mg PO DAILY 5 days #10 tabs 02/15/22 Allergies Allergy/AdvReac Type Severity Reaction Status Date / Time Penicillins Allergy Intermediate SWELLING Verified 10/16/20 07:10 methylphenidate Allergy Unknown Verified 10/10/20 16:52 [From [employer]] Review of Systems Review of Systems: asthma, cough, fever, Yes all other systems are reviewed and are negative [facility] Past Medical History Medical History ADD (attention deficit disorder) Asthma Cognitive developmental delay Epistaxis Insomnia Social History Social History (Updated 09/17/21 @ 08:50 by Mayela De Jesus DO) Patient Tobacco Use Status: Never used Tobacco Advance Directives: Yes Advance Directives Information Provided: Yes Advance Directives on File: No Physical Exam Vital Signs: Vital Signs: Last Vital Signs Temp 98.7 F 02/15/22 13:06 Pulse 103 H 02/15/22 13:06 Resp 18 02/15/22 14:42 BP 116/57 L 02/15/22 13:06 Pulse Ox 96 02/15/22 13:06 O2 Del Method 02/15/22 13:06 BMI result Body Mass Index 21.8 Const: General: cooperative, healthy appearing, comfortable, no acute distress, alert, awake and Physically active; No acute distress Orientation/consciousness: oriented to time and patient oriented x3 HEENT: Head: Yes normal to inspection, Yes No palpable skull fracture present, Yes normocephalic, Yes atraumatic and No abrasion Ears: hearing grossly normal bilaterally, external ears normal, TM's normal bilaterally, EAC's normal, mastoids normal and no periauricular adenopathy Throat: Yes posterior oropharynx normal, Yes tonsils normal and Yes uvula midline Eyes: General: appearance normal, both eyes and all related structures Neck: Neck: Yes normal visual inspection, Yes full ROM, Yes no lymphadenopathy, Yes no meningeal signs, Yes trachea midline, Yes supple, No ant erior neck swelling and No tender Chest: Chest palpation & inspection: normal inspection of the chest and normal palpation of entire chest wall Resp: Effort & Inspection: normal respiratory effort and able to speak in complete sentences Auscultation: clear to auscultation bilaterally Cardio: Jugular venous distension: no JVD GI: Inspection: Yes normal to inspection and No abdominal wall ecchymosis Palpation (GI): Soft to palpation, not firm, nontender, no guarding and not rigid : General: No CVA tenderness and Yes no CVA tenderness Back/Spine/Pelvis: Back: no CVA tenderness, No CVA tenderness and No back tenderness Skin: General skin exam: no rashes or lesions noted and elasticity normal Neuro: General: oriented to time, patient oriented x3, gait normal and no meningeal signs Cranial nerves: Yes CN's II-XII intact bilaterally Extrem: Other: Lower extremities negative for swelling, pitting edema, or calf tenderness. General: Yes normal to inspection and Yes full ROM Psych: Appearance: grossly normal, well kempt and not disheveled Course Course Course Narrative: Patient well-appearing and not in distress. Will order COVID influenza swab. Chest x-ray. Also order albuterol inhaler prednisone. Reevaluation(s) Reevaluation #1: Chest x-ray negative for pneumonia. COVID flu swab negative. Patient feels better after albuterol inhaler. No further evaluation needed. Patient tachycardic due to receiving albuterol nebulizer at home and in the ER. Not Suspecting GA or PE. Not suspecting CHF. Patient is safe for discharge Time: 15:38 MDM - Asthma MDM Narrative Medical decision making narrative: Asthma Lab Data Labs: Lab Results 02/15/22 02/15/22 Range/Units 13:12 13:12 COVID-19 ([facility]) Negative (Negative) COVID-19 Clin Com See Note Influenza Type A ([facility]) Negative (Negative) Influenza Type B ([facility]) Negative (Negative) Influenza A & B Note See Note Discharge Plan Discharge Clinical Impression: Asthma with acute exacerbation Patient Disposition: Home, Self-Care Instructions: Asthma (ED) Additional Instructions: Obrien radiograf?a de t?rax, COVID y hisopos de influenza resultaron negativos. Usted est? a june para el fiorella. Contin?e usando el inhalador de albuterol y el nebulizador de albuterol en casa seg?n sea necesario. Ser? dado de fiorella con esteroides. Regrese al servicio de urgencias de inmediato por cualquier dolor en el pecho, dificultad para respirar, hinchaz?n de las piernas, dolor en la pantorrilla, tos con delbert, dolor en el pecho al inspirar, fiebre controlable, debilidad, escalofr?os o cualquier otro s?ntoma preocupante. Por favor, jose un seguimiento con el PCP. Prescriptions: New prednisone 20 mg tablet 40 mg PO DAILY 5 Days Qty: 10 0RF benzonatate 100 mg capsule 100 mg PO TID PRN (Reason: cough) 5 Days Qty: 15 0RF No Action multivitamin Tablet 1 tab PO DAILY albuterol sulfate 2.5 mg /3 mL (0.083 %) Solution For Nebulization 2.5 mg INHALATION Q4-6H PRN (Reason: Shortness Of Breath Or Wheezing) citalopram [Celexa] 10 mg Tablet 10 mg PO DAILY acetaminophen 500 mg Tablet 1,000 mg PO Q6H PRN (Reason: Pain) dextroamphetamine-amphetamine [Adderall] 30 mg Tablet 30 mg PO DAILY trazodone 100 mg Tablet 100 mg PO BEDTIME Flovent HFA 44 mcg/actuation Hfa Aerosol Inhaler 2 puff INHALATION BID omeprazole 20 mg Capsule,Delayed Release(Dr/Ec) 20 mg PO DAILY albuterol sulfate 90 mcg/actuation Hfa Aerosol Inhaler 2 puff INHALATION Q4-6H PRN (Reason: Shortness Of Breath Or Wheezing) fluticasone propionate [Flonase Allergy Relief] 50 mcg/actuation [place],Suspension 2 spray INTRANASAL DAILY cetirizine [Zyrtec] 10 mg Tablet 10 mg PO DAILY calcium carbonate [Tums E-X] 300 mg (750 mg) Tablet,Chewable 300 mg PO BID cholecalciferol (vitamin D3) [Vitamin D3] 50 mcg (2,000 unit) Capsule 50 mcg PO DAILY sulfamethoxazole-trimethoprim [Bactrim DS] 800-160 mg tablet 1 tab PO BID Qty: 10 0RF doxycycline hyclate 100 mg tablet 100 mg PO BID 7 Days Qty: 14 0RF Rx Instructions: take with a meal and full glass of water Stand Alone Forms: Work/School Release Interventions: ED Discharge Assessment Last Done: 02/15/22 15:54 Discharge Date/Time: 02/15/22 15:55 Print Language: Hungarian
[2022-02-15] MEDS: predniSONE 20 MG TABLET 60 MG PO (14:02)
[2022-02-15] MEDS: Albuterol/Iprat 2.5/0.5MG 3 ML AMPUL.NEB INHALE (14:41)
[2022-02-15 14:42] VITALS: RESP 18; O2SAT 96
== END 2022-02-15 15:55 | disposition home or self-care (01) ==
PROVIDERS: Emergency Provider Internal Medicine; PCP Nurse Practitioner Primary Care
DX: J45.901 Unspecified asthma with (acute) exacerbation (principal); R06.02 Shortness of breath; R05.9 Cough, unspecified; R50.9 Fever, unspecified; Z20.822 Contact with and (suspected) exposure to COVID-19
CPT/HCPCS: 71045; 87502; 87635; 94640; 99283

== ENCOUNTER 2023-03-23 10:36 | Outpatient (REF) | payer MEDICAID, SELFPAY ==
[2023-03-23 13:56] LABS: Estimated Average Glucose 80 mg/dL; Hemoglobin A1c % 4.4 % (<6.0)
[2023-03-23 14:00] LABS: Alanine Aminotransferase 36 U/L (0-40); Albumin Level 4.6 g/dL (3.5-5.0); Alkaline Phosphatase 86 U/L (39-117); Anion Gap 14 (12-20); Aspartate Amino Transferase 37 U/L (5-37); Bilirubin Total 0.8 mg/dL (0.0-1.0); Blood Urea Nitrogen 10 mg/dL (9-16); Carbon Dioxide 27 mmol/L (22-29); Chloride 103 mmol/L (96-108); Cholesterol 240 mg/dL (<200); Estimated Glomerular Filt Rate > 60; Glucose Random 89 mg/dL (60-115); HDL Cholesterol 43 mg/dL (>40); LDL Cholesterol Calculated 158 mg/dL (<100); Sodium 140 mmol/L (135-145); Total Protein 7.6 g/dL (6.5-8.0); Triglycerides 195 mg/dL (<150)
== END 2023-03-23 10:37 | disposition home or self-care (01) ==
LOC: HO.HHCL 10:36
PROVIDERS: Visit Provider Nurse Practitioner Primary Care
DX: Z00.00 Encounter for general adult medical examination without abnormal findings (principal); R74.8 Abnormal levels of other serum enzymes; E78.00 Pure hypercholesterolemia, unspecified
CPT/HCPCS: 36415; 80053; 80061; 83036

== ENCOUNTER 2023-04-30 11:21 | Day surgery (SDC) | payer MEDICAID, SELFPAY ==
--- NOTE | 2023-04-21 14:12 | HO.ANESPROP2 ---
HPI - Anesthesia Eval Consult details Narrative: 27yo M for Fine Needle Biopsy CT Guided of brain Cognitive developmental delay [facility] Past Medical History Medical History (Updated 04/21/23 @ 09:17 by Laurel Bright, RAJESH) Headache Dizziness Severe anxiety Epistaxis Asthma ADD (attention deficit disorder) Insomnia Cognitive developmental delay Social History Social History (Updated 09/17/21 @ 08:50 by Mayela De Jesus DO) Patient Tobacco Use Status: Never used Tobacco Meds Allergies Allergy/AdvReac Type Severity Reaction Status Date / Time Penicillins Allergy Intermediate SWELLING Verified 10/16/20 07:10 methylphenidate Allergy Unknown Verified 10/10/20 16:52 [From Concerta] Home Medications Medication Instructions Recorded Confirmed Last Taken Type acetaminophen 500 mg tablet 1,000 mg PO Q6H PRN Pain 10/10/20 10/10/20 Unknown History albuterol sulfate 2.5 mg/3 mL 2.5 mg inhalation Q4-6H PRN 10/10/20 04/21/23 Unknown History (0.083 %) solution for nebulization Shortness Of Breath Or Wheezing albuterol sulfate 90 mcg/actuation 2 puff inhalation Q4-6H PRN 10/10/20 10/10/20 Unknown History aerosol inhaler Shortness Of Breath Or Wheezing calcium carbonate 300 mg (750 mg) 300 mg PO BID 10/10/20 10/10/20 Unknown History chewable tablet (Tums E-X) cetirizine 10 mg tablet (Zyrtec) 10 mg PO DAILY 10/10/20 10/16/20 10/16/20 History cholecalciferol (vitamin D3) 50 50 mcg PO DAILY 10/10/20 10/10/20 Unknown History mcg (2,000 unit) capsule (Vitamin D3) dextroamphetamine-amphetamine 30 30 mg PO DAILY 10/10/20 10/10/20 Unknown History mg tablet (Adderall) fluticasone propionate 44 2 puff inhalation BID 10/10/20 10/10/20 Unknown History mcg/actuation HFA aerosol inhaler (Flovent HFA) fluticasone propionate 50 2 spray intranasal DAILY 10/10/20 10/10/20 Unknown History mcg/actuation nasal spray,suspension (Flonase Allergy Relief) multivitamin 1 tab PO DAILY 10/10/20 04/21/23 Unknown History omeprazole 20 mg capsule,delayed 20 mg PO DAILY 10/10/20 10/10/20 Unknown History release amitriptyline 25 mg tablet 25 mg PO BEDTIME 04/21/23 04/21/23 Unknown History aripiprazole 5 mg tablet (Abilify) 5 mg PO DAILY 04/21/23 04/21/23 Unknown History citalopram 20 mg tablet 20 mg PO DAILY 04/21/23 04/21/23 Unknown History doxycycline monohydrate 100 mg 100 mg DAILY 04/21/23 04/21/23 Unknown History capsule psyllium seed (sugar) oral packet packet PO 04/21/23 04/21/23 Unknown History sumatriptan succinate 50 mg tablet 50 mg PO DAILY [id number] PRN Migraine 04/21/23 04/21/23 Unknown History Headache trazodone 100 mg tablet 100 mg BEDTIME 04/21/23 04/21/23 Unknown History Exam Pertinent Lab Results Pertinent Lab Results: Laboratory Tests 03/23/23 10:45 Sodium 140 Potassium 4.0 Chloride 103 Carbon Dioxide 27 BUN 10 Creatinine 1.32 Assessment and Plan Assessment Anesthesia Assessment: Chart Reviewed
--- NOTE | ~2023-04-30 | CT_ITS ---
EXAMINATION: CT HEAD WITHOUT CONTRAST CLINICAL INFORMATION: Migraines without aura. COMPARISON: None. TECHNIQUE: Contiguous axial imaging was performed from the skullbase to vertex without intravenous administration of contrast. This CT examination was performed using dose optimization techniques as appropriate, variously including the following: *Automated exposure control *Adjustment of mA and/or kV according to patient size (this includes techniques or standardized protocols for targeted exams where dose is matched to indication/reason for exam; i.e. extremities or head) *Use of iterative reconstruction technique DLP: 835 mGy-cm. FINDINGS: There is no evidence of acute intracranial hemorrhage or territorial infarction. No abnormal mass effect or midline shift is seen. Guidry to white matter differentiation is well preserved. No extra-axial fluid collections are identified. The ventricles are normal in size. There is no abnormal attenuation within the brain parenchyma. The osseous structures and soft tissues are normal. The mastoid air cells and visualized portions of the paranasal sinuses are well aerated. CT/CT head/brain wo IV con IMPRESSION: No acute intracranial pathology.
--- NOTE | 2023-04-30 08:07 | HO.ANESPROP2 ---
[facility] Past Medical History Medical History Headache Dizziness Severe anxiety Epistaxis Asthma ADD (attention deficit disorder) Insomnia Cognitive developmental delay Social History Social History Patient Tobacco Use Status: Never used Tobacco Meds Allergies Allergy/AdvReac Type Severity Reaction Status Date / Time Penicillins Allergy Intermediate SWELLING Verified 10/16/20 07:10 methylphenidate Allergy Unknown Verified 10/10/20 16:52 [From Concerta] Home Medications Medication Instructions Recorded Confirmed Last Taken Type acetaminophen 500 mg tablet 1,000 mg PO Q6H PRN Pain 10/10/20 10/10/20 Unknown History albuterol sulfate 2.5 mg/3 mL 2.5 mg inhalation Q4-6H PRN 10/10/20 04/21/23 Unknown History (0.083 %) solution for nebulization Shortness Of Breath Or Wheezing albuterol sulfate 90 mcg/actuation 2 puff inhalation Q4-6H PRN 10/10/20 10/10/20 Unknown History aerosol inhaler Shortness Of Breath Or Wheezing calcium carbonate 300 mg (750 mg) 300 mg PO BID 10/10/20 10/10/20 Unknown History chewable tablet (Tums E-X) cetirizine 10 mg tablet (Zyrtec) 10 mg PO DAILY 10/10/20 10/16/20 10/16/20 History cholecalciferol (vitamin D3) 50 50 mcg PO DAILY 10/10/20 10/10/20 Unknown History mcg (2,000 unit) capsule (Vitamin D3) dextroamphetamine-amphetamine 30 30 mg PO DAILY 10/10/20 10/10/20 Unknown History mg tablet (Adderall) fluticasone propionate 44 2 puff inhalation BID 10/10/20 10/10/20 Unknown History mcg/actuation HFA aerosol inhaler (Flovent HFA) fluticasone propionate 50 2 spray intranasal DAILY 10/10/20 10/10/20 Unknown History mcg/actuation nasal spray,suspension (Flonase Allergy Relief) multivitamin 1 tab PO DAILY 10/10/20 04/21/23 Unknown History omeprazole 20 mg capsule,delayed 20 mg PO DAILY 10/10/20 10/10/20 Unknown History release amitriptyline 25 mg tablet 25 mg PO BEDTIME 04/21/23 04/21/23 Unknown History aripiprazole 5 mg tablet (Abilify) 5 mg PO DAILY 04/21/23 04/21/23 Unknown History citalopram 20 mg tablet 20 mg PO DAILY 04/21/23 04/21/23 Unknown History doxycycline monohydrate 100 mg 100 mg DAILY 04/21/23 04/21/23 Unknown History capsule psyllium seed (sugar) oral packet packet PO 04/21/23 04/21/23 Unknown History sumatriptan succinate 50 mg tablet 50 mg PO DAILY MRX1 PRN Migraine 04/21/23 04/21/23 Unknown History Headache trazodone 100 mg tablet 100 mg BEDTIME 04/21/23 04/21/23 Unknown History
[2023-04-30 12:10] VITALS: BMI 30.5
[2023-04-30 12:23] VITALS: BP 109/66; PULSE 90; RESP 16; TEMP 36.7; O2SAT 97
[2023-04-30] MEDS: Lactated Ringers 1,000 ML 100 ML IVCONT (12:34)
[2023-04-30 14:00] VITALS: BP 106/67; PULSE 97; RESP 16; TEMP 36.7; O2SAT 97
[2023-04-30 14:15] VITALS: BP 108/56; PULSE 97; RESP 18; TEMP 36.7; O2SAT 97
== END 2023-04-30 14:25 | disposition home or self-care (01) ==
LOC: HO.CT 11:21
PROVIDERS: Radiology Vascular & Interventional Radiology; PCP Nurse Practitioner Primary Care; Visit Provider Nurse Practitioner Primary Care
DX: G43.009 Migraine without aura, not intractable, without status migrainosus (principal); R42 Dizziness and giddiness; R26.81 Unsteadiness on feet; F81.9 Developmental disorder of scholastic skills, unspecified; F98.8 Other specified behavioral and emotional disorders with onset usually occurring in childhood and adolescence; J45.909 Unspecified asthma, uncomplicated; R04.0 Epistaxis; H54.7 Unspecified visual loss; Z79.899 Other long term (current) drug therapy; Z88.0 Allergy status to penicillin; Z88.8 Allergy status to other drugs, medicaments and biological substances
CPT/HCPCS: 70450; J2250; J7120

== ENCOUNTER 2024-05-01 | Outpatient (REF) | payer MEDICAID, SELFPAY ==
[2024-05-02 17:21] LABS: Appearance Urine Clear; Color Urine Yellow; Glucose Urine UA Negative (Negative); Leukocyte Esterase Urine Negative (Negative); Nitrite Urine Negative (Negative); Specific Gravity - Urine 1.025 (1.005-1.025); Urine Blood Negative (Negative); Urine Ketones Trace mg/dL (Negative); Urine Protein Negative (Neg-Trace)
== END 2024-05-01 00:01 | disposition home or self-care (01) ==
LOC: HO.HHCLNP
PROVIDERS: Visit Provider Nurse Practitioner Primary Care
DX: N39.41 Urge incontinence (principal)
CPT/HCPCS: 81003

== ENCOUNTER 2024-05-09 10:06 | Outpatient (REF) | payer MEDICAID, SELFPAY ==
[2024-05-09 11:11] LABS: Estimated Average Glucose 85 mg/dL; Hemoglobin A1C 99.5868 umol/L; Hemoglobin A1c % 4.6 % (<6.0); Total Hemoglobin (HGBA1C) 3683.9544 umol/L
[2024-05-09 11:25] LABS: Appearance Urine Clear; Color Urine Yellow; Glucose Urine UA Negative (Negative); Leukocyte Esterase Urine Negative (Negative); Nitrite Urine Negative (Negative); PH 5.5 (5.0-9.0); Urine Blood Negative (Negative); Urine Ketones Negative (Negative); Urine Protein Negative (Neg-Trace)
[2024-05-09 11:31] LABS: Bacteria Urine None Seen (None Seen); Hyaline Casts Urine 0-2 /LPF (0-2); RBC Urine 0-2 /HPF (0-2); Squamous Epithelial Cell Urine 0-2 /HPF (0-2); WBC Urine 0-5 /HPF (0-5)
[2024-05-09 11:56] LABS: Alanine Aminotransferase 29 U/L (0-40); Albumin Level 4.4 g/dL (3.5-5.0); Alkaline Phosphatase 85 U/L (39-117); Amylase 48 U/L (28-100); Anion Gap 11 (12-20); Aspartate Amino Transferase 24 U/L (5-37); Bilirubin Total 0.8 mg/dL (0.0-1.0); Blood Urea Nitrogen 16 mg/dL (9-16); Calcium 8.9 mg/dL (8.4-10.2); Carbon Dioxide 26 mmol/L (22-29); Chloride 105 mmol/L (96-108); Cholesterol 211 mg/dL (<200); Estimated Glomerular Filt Rate > 60; Glucose Random 87 mg/dL (60-115); HDL Cholesterol 35 mg/dL (>40); LDL Cholesterol Calculated 157 mg/dL (<100); Lipase 13 U/L (8-78); Potassium 3.8 mmol/L (3.3-5.1); Sodium 138 mmol/L (135-145); Total Protein 7.3 g/dL (6.5-8.0); Triglycerides 96 mg/dL (<150)
== END 2024-05-09 10:07 | disposition home or self-care (01) ==
LOC: HO.LAB 10:06
PROVIDERS: PCP Nurse Practitioner Primary Care; Visit Provider Nurse Practitioner Primary Care
DX: R10.11 Right upper quadrant pain (principal); E78.2 Mixed hyperlipidemia; Z13.1 Encounter for screening for diabetes mellitus; N39.41 Urge incontinence
CPT/HCPCS: 36415; 80053; 80061; 81001; 82150; 83036; 83690; 84443

== ENCOUNTER 2024-05-12 06:44 | Emergency (ER) | payer MEDICAID, SELFPAY ==
[2024-05-12 06:52] VITALS: BP 106/61; PULSE 105; RESP 20; TEMP 36.9; O2SAT 98; BMI 29.8
[2024-05-12 07:27] LABS: Basophils Percent Auto 0.3 % (0-2); Eosinophils Absolute Auto 0.1 X10*3/uL (0.0-0.4); Eosinophils Percent Auto 1.4 % (0-4); Hematocrit 36.2 % (42.0-52.0); Hemoglobin 13.1 g/dl (14.0-18.0); Imm Gran Abs Auto 0.02 X10*3/uL (0.00-0.03); Imm Gran Pct Auto 0.6 % (0.0-0.4); Lymphocytes Absolute Auto 1.2 X10*3/uL (1.2-4.9); Lymphocytes Percent Auto 33.6 % (20-40); MANUAL DIFF FLAG NO; Mean Corpuscular HGB Conc 36.2 g/dl (31.0-36.0); Mean Corpuscular Hemoglobin 31.6 pg (27.0-33.0); Mean Corpuscular Volume 87.4 fL (80.0-98.0); Mean Platelet Volume 10.3 fL (9.4-12.4); Monocytes Absolute Auto 0.4 X10*3/uL (0.1-1.2); Monocytes Percent Auto 11.6 % (2-11); Neutrophils Absolute Auto 1.8 x10*3/uL (2.0-8.3); Neutrophils Percent Auto 52.5 % (45-73); Platelet Count 185 X10*3/uL (160-400); Red Blood Count 4.14 X10*6/uL (4.60-5.80); Red Cell Distribution Width 11.3 % (11.0-16.0); White Blood Count 3.5 X10*3/uL (4.8-10.8)
[2024-05-12 07:43] LABS: Alanine Aminotransferase 30 U/L (0-40); Alkaline Phosphatase 74 U/L (39-117); Anion Gap 11 (12-20); Aspartate Amino Transferase 40 U/L (5-37); Bilirubin Total 0.5 mg/dL (0.0-1.0); Blood Urea Nitrogen 14 mg/dL (9-16); Calcium 8.7 mg/dL (8.4-10.2); Carbon Dioxide 25 mmol/L (22-29); Chloride 109 mmol/L (96-108); Creatinine Clr Calc Pharmacy 96.8; Estimated Glomerular Filt Rate > 60; Glucose Random 101 mg/dL (60-115); Potassium 3.6 mmol/L (3.3-5.1); Sodium 141 mmol/L (135-145); Total Protein 6.5 g/dL (6.5-8.0)
[2024-05-12] MEDS: Silver Nitrate Applicator STICK..EA. 1 APPL TOPICAL (08:40)
[2024-05-12] MEDS: Cocaine HCl 4 % 4 ML SOLUTION TOPICAL (08:40)
[2024-05-12 08:44] VITALS: BP 110/62; PULSE 90; RESP 16; TEMP 36.6; O2SAT 96
--- NOTE | 2024-05-12 10:28 | ED_ITS ---
History of Present Illness General Chief Complaint: Epistaxis Stated Complaint: epistaxis? Time Seen by Provider: 05/12/24 07:06 Source: patient (Mother and father) Mode of arrival: ambulatory Limitations: other ( patient has developmental delay, information came from his parents.) History of Present Illness HPI Narrative: 28-year-old male with history of autism and mental delay who presents emergency department for evaluation left nares nose bleed. The nose bleed began yesterday and the family states that he has had bleeding on and off for the past 24 hours. The patient had no injury to his nose but the family states he does rub his nose constantly. Patient has had nosebleeds in the past. Patient has not had any concerning symptoms such as fatigue, weakness, unexplained bruising. Related Data Home Medications ?Medication ?Instructions ?Recorded ?Confirmed acetaminophen 500 mg tablet 1,000 mg PO Q6H PRN Pain 10/10/20 10/10/20 albuterol sulfate 2.5 mg/3 mL 2.5 mg inhalation Q4-6H PRN 10/10/20 04/21/23 (0.083 %) solution for nebulization Shortness Of Breath Or Wheezing albuterol sulfate 90 mcg/actuation 2 puff inhalation Q4-6H PRN 10/10/20 10/10/20 aerosol inhaler Shortness Of Breath Or Wheezing calcium carbonate (Tums E-X) 300 mg PO BID 10/10/20 10/10/20 cetirizine 10 mg tablet (Zyrtec) 10 mg PO DAILY 10/10/20 10/16/20 cholecalciferol (vitamin D3) 50 50 mcg PO DAILY 10/10/20 10/10/20 mcg (2,000 unit) capsule (Vitamin D3) dextroamphetamine-amphetamine 30 30 mg PO DAILY 10/10/20 10/10/20 mg tablet (Adderall) fluticasone propionate 44 2 puff inhalation BID 10/10/20 10/10/20 mcg/actuation HFA aerosol inhaler (Flovent HFA) fluticasone propionate 50 2 spray intranasal DAILY 10/10/20 10/10/20 mcg/actuation nasal spray,suspension (Flonase Allergy Relief) multivitamin 1 tab PO DAILY 10/10/20 04/21/23 omeprazole 20 mg capsule,delayed 20 mg PO DAILY 10/10/20 10/10/20 release amitriptyline 25 mg tablet 25 mg PO BEDTIME 04/21/23 04/21/23 aripiprazole 5 mg tablet (Abilify) 5 mg PO DAILY 04/21/23 04/21/23 citalopram 20 mg tablet 20 mg PO DAILY 04/21/23 04/21/23 doxycycline monohydrate 100 mg 100 mg DAILY 04/21/23 04/21/23 capsule psyllium seed (sugar) oral packet packet PO 04/21/23 04/21/23 sumatriptan succinate 50 mg tablet 50 mg PO DAILY MRX1 PRN Migraine 04/21/23 04/21/23 Headache trazodone 100 mg tablet 100 mg BEDTIME 04/21/23 04/21/23 Previous Rx's ?Medication ?Instructions ?Recorded sulfamethoxazole 800 1 tab PO BID #10 tabs 03/16/21 mg-trimethoprim 160 mg tablet (Bactrim DS) benzonatate 100 mg capsule 100 mg PO TID PRN cough 5 days #15 02/15/22 caps prednisone 20 mg tablet 40 mg (2 x 20 mg) PO DAILY 5 days 02/15/22 #10 tabs Allergies Allergy/AdvReac Type Severity Reaction Status Date / Time Penicillins Allergy Intermediate SWELLING Verified 05/12/24 06:55 methylphenidate Allergy Unknown Verified 05/12/24 06:55 [From Skoodat] Review of Systems 2 Review of Systems: Yes all other systems are reviewed and are negative [facility] Past Medical History Medical History Headache Dizziness Severe anxiety Epistaxis Asthma ADD (attention deficit disorder) Insomnia Cognitive developmental delay Social History Social History (System 05/05/24 @ 12:05 by Isha Alcala) Patient Tobacco Use Status: Never used Tobacco Smoked in Last 30 Days: No Use of substances other than those prescribed or required for medical reasons: No Advance Directives: No Advance Directives Information Provided: Yes Physical Exam 2 Vital Signs: Vital Signs: Last Vital Signs Temp 98.0 F 05/12/24 10:45 Pulse 85 05/12/24 10:45 Resp 18 05/12/24 10:45 BP 121/69 05/12/24 10:45 Pulse Ox 98 05/12/24 10:45 O2 Del Method Room Air 05/12/24 10:45 BMI result Body Mass Index 29.8 Vital signs were normal exam: General: awake, alert, pleasant, cooperative in no distress Nose: Patient has dry blood in the right nares, there is an area of increased redness consistent with a fresh blood clot noted on the anterior nasal septum. There is no dried blood or area of bleeding in the right nasal septum. There is no active bleeding noted. Medications Administered Discontinued Medications Generic Name Dose Route Start Last Admin Trade Name Ankit PRN Reason Stop Dose Admin Cocaine HCl 4 ml 05/12/24 08:27 05/12/24 08:40 Cocaine Hcl 4 % 4 Ml Solution TOPICAL 05/12/24 08:28 4 ml ONCE ONE Administration Protocol Silver Nitrate 1 appl 05/12/24 08:27 05/12/24 08:40 Silver Nitrate Applicator Stick..Ea. TOPICAL 05/12/24 08:28 1 appl ONCE ONE Administration Medical Decision Making Medical Decision Making MDM Narrative: 28-year-old male with a history of autism and developmental delay who presents to the emergency department for evaluation bleeding from his left nares over the last 24 hours. Patient has had no injury. the parents have not noticed any easy bruisability or other areas of bleeding. Patient has had no concerning systemic signs. Vital signs revealed normal blood pressure. Physical examination did reveal an area of bleeding with a fresh blood clot on the anterior nasal septum in the left nostril Differential diagnosis: Includes but is not limited to Anterior epistaxis, posterior epistaxis, blood dyscrasia Course: The patient's left naris was packed with 4% cocaine soaked cotton plinths for 40 minutes. The area of bleeding was then cauterized using silver nitrate sticks times 3 applications. Patient was observed for approximately 20 minutes and had no further bleeding. He was discharged home with printed and verbal instructions and he is reviewed with his parents. Differential Diagnosis Differential Diagnoses: The differential diagnosis associated with the presentation includes ( no) Lab Data [facility] Lab Attestation statement: I reviewed the patient's lab results. My independent interpretation patient's laboratory evaluation is as follows: WBCs low at 3500-chronic. Normocytic anemia with an H&H of 13.1 -chronic. CMP was normal. 05/12/24 07:22 05/12/24 07:22 Labs: Lab Results 05/12/24 Range/Units 07:22 WBC 3.5 L (4.8-10.8) X10*3/uL RBC 4.14 L (4.60-5.80) X10*6/uL Hgb 13.1 L (14.0-18.0) g/dl Hct 36.2 L (42.0-52.0) % MCV 87.4 (80.0-98.0) fL MCH 31.6 (27.0-33.0) pg MCHC 36.2 H (31.0-36.0) g/dl RDW 11.3 (11.0-16.0) % Plt Count 185 (160-400) X10*3/uL MPV 10.3 (9.4-12.4) fL Immature Gran % (Auto) 0.6 H (0.0-0.4) % Neut % (Auto) 52.5 (45-73) % Lymph % (Auto) 33.6 (20-40) % Kitt[place] % (Auto) 11.6 H (2-11) % Eos % (Auto) 1.4 (0-4) % Baso % (Auto) 0.3 (0-2) % Lymph # (Auto) 1.2 (1.2-4.9) X10*3/uL Kittson # (Auto) 0.4 (0.1-1.2) X10*3/uL Eos # (Auto) 0.1 (0.0-0.4) X10*3/uL Baso # (Auto) 0.0 (0.0-0.2) X10*3/uL Abs Immat Gran (auto) 0.02 (0.00-0.03) X10*3/uL Absolute Neuts (auto) 1.8 L (2.0-8.3) x10*3/uL Absolute Nucleated RBC 0.000 (0.0-0.012) X10*3/uL Nucleated RBC % (auto) 0.0 (0.0-0.2) /100WBC Sodium 141 (135-145) mmol/L Potassium 3.6 (3.3-5.1) mmol/L Chloride 109 H (96-108) mmol/L Carbon Dioxide 25 (22-29) mmol/L Anion Gap 11 L (12-20) BUN 14 (9-16) mg/dL Creatinine 1.18 (0.5-1.4) mg/dL Estim Creat Clear Calc 96.8 Estimated GFR > 60 Random Glucose 101 (60-115) mg/dL Calcium 8.7 (8.4-10.2) mg/dL Total Bilirubin 0.5 (0.0-1.0) mg/dL AST 40 H (5-37) U/L ALT 30 (0-40) U/L Alkaline Phosphatase 74 (39-117) U/L Total Protein 6.5 (6.5-8.0) g/dL Albumin 4.0 (3.5-5.0) g/dL Independent Historian Clinical information obtained from an independent historian. History obtained from or confirmed by: Parent ( Mother and father) Procedures Procedure Narrative Procedure Narrative: Epistaxis control /cauterization procedure: The patient's parents gave informed verbal consent proceed. The patient's left naris was packed with cotton plinths soaked in 4% cocaine for 20 minutes x2. the area of bleeding was located on the left nostril nasal septum. This was cauterized using 3 silver nitrate sticks. Patient was observed for 20 minutes after cauterization and there was no active bleeding. Patient tolerated the procedure well. Discharge Plan Discharge Clinical Impression: Acute anterior epistaxis Patient Disposition: Home, Self-Care Instructions: Nosebleed (ED) Additional Instructions: You had a small bleeding area on the inside of your nose. Your tact with continence soaked in 4% cocaine for 40 minutes and then I cauterized the area of bleeding with silver nitrate swabs Do not touch, rubs or stick anything in your nose for the next 3-4 days. The blood vessels on the inside of the nose or very close to the surface and despite cauterizing them these blood vessels can bleed again. If bleeding starts again then apply pressure to the soft part of the nose for 20 minutes either with fingers or with the external nose plug Follow-up with your doctor in 2 days. Please return to the emergency department if your symptoms get worse or if you develop any symptoms that are concerning to you. Prescriptions: No Action multivitamin Tablet 1 tab PO DAILY albuterol sulfate 2.5 mg /3 mL (0.083 %) Solution For Nebulization 2.5 mg INHALATION Q4-6H PRN (Reason: Shortness Of Breath Or Wheezing) acetaminophen 500 mg Tablet 1,000 mg PO Q6H PRN (Reason: Pain) dextroamphetamine-amphetamine [Adderall] 30 mg Tablet 30 mg PO DAILY Flovent HFA 44 mcg/actuation Hfa Aerosol Inhaler 2 puff INHALATION BID omeprazole 20 mg Capsule,Delayed Release(Dr/Ec) 20 mg PO DAILY albuterol sulfate 90 mcg/actuation Hfa Aerosol Inhaler 2 puff INHALATION Q4-6H PRN (Reason: Shortness Of Breath Or Wheezing) fluticasone propionate [Flonase Allergy Relief] 50 mcg/actuation Boelus,Suspension 2 spray INTRANASAL DAILY cetirizine [Zyrtec] 10 mg Tablet 10 mg PO DAILY calcium carbonate [Tums E-X] 300 mg (750 mg) Tablet,Chewable 300 mg PO BID cholecalciferol (vitamin D3) [Vitamin D3] 50 mcg (2,000 unit) Capsule 50 mcg PO DAILY sulfamethoxazole-trimethoprim [Bactrim DS] 800-160 mg tablet 1 tab PO BID Qty: 10 0RF prednisone 20 mg tablet 40 mg PO DAILY 5 Days Qty: 10 0RF benzonatate 100 mg capsule 100 mg PO TID PRN (Reason: cough) 5 Days Qty: 15 0RF sumatriptan succinate 50 mg tablet 50 mg PO DAILY MRX1 PRN (Reason: Migraine Headache) citalopram 20 mg tablet 20 mg PO DAILY amitriptyline 25 mg tablet 25 mg PO BEDTIME trazodone 100 mg tablet 100 mg BEDTIME doxycycline monohydrate 100 mg capsule 100 mg DAILY Metamucil Smooth Texture Packet PO aripiprazole [Abilify] 5 mg tablet 5 mg PO DAILY Interventions: ED Discharge Assessment Last Done: 05/12/24 10:45 Discharge Date/Time: 05/12/24 10:45 Print Language: Swiss
[2024-05-12 10:43] VITALS: BP 121/69; PULSE 85; RESP 18; TEMP 36.7; O2SAT 98
--- NOTE | 2024-05-12 10:44 | PC.NURSE ---
pt a&ox3, vss, pt nasal bleeding stopped with interventions provided by previous RN and provider, pt to discharge home.
[2024-05-12 10:45] VITALS: BP 121/69; PULSE 85; RESP 18; TEMP 36.7; O2SAT 98
== END 2024-05-12 10:45 | disposition home or self-care (01) ==
PROVIDERS: Emergency Provider Emergency Medicine Emergency Medical Services; PCP Nurse Practitioner Primary Care
DX: R04.0 Epistaxis (principal); F84.0 Autistic disorder; Z79.899 Other long term (current) drug therapy; J45.909 Unspecified asthma, uncomplicated
CPT/HCPCS: 36415; 80053; 85025; 99283; 99284; C9143

== ENCOUNTER 2025-01-05 08:52 | Outpatient (AMB) | payer MEDICAID, SELFPAY ==
--- OUTSIDE RECORDS SUMMARY | 2025-01-05 09:11 | XMS_ITS | Clinical Summary ---
Author Organization [employer] Address [address] [place] [address] 7 [place] [address] Care Team Providers Care Medical Stenographer Name Role Phone Vicki Licea Primary Care Provider [phone] Allergies Active Allergy Reactions Criticality Noted Date Comments Methylphenidate Unknown 08/04/2010 Penicillin V Unknown 08/04/2010 Medications Multiple Vitamin (Daily-Lacy Multivitamin) tabletIndication s:Healthcare maintenance TOME MARIA M TABLETA TODOS LOS D 90 tablet 3 3 Active amitriptyline (Elavil) 25 MG tablet TOME MARIA M TABLETA TODOS LOS D AL ACOSTARSE FOR 90 DAYS 3 Active citalopram (CeleXA) 20 MG tablet TOME MARIA M TABLETA TODOS LOS D 3 Active traZODone (Desyrel) 100 MG tablet TOME MARIA M TABLETA TODOS LOS D AL ACOSTARSE 3 Active ARIPiprazole (Abilify) 5 MG tablet TOME MARIA M TABLETA TODOS LOS D 3 Active Adderall XR 20 MG 24 hr capsule TOME MARIA M C PSULA TODOS LOS D EN LA MA MARCOS 3 Active COVID-19 At-Home Test kitIndications:H ealthcare maintenance 1 each by In Vitro route if needed (COVID sx). 4 kit 1 3 Active albuterol (2.5 MG/3ML) 0.083% nebulizer solutionIndicati ons:Wheezing INHALE 1 AMP (3 MLS) BY NEBULIZATION ROUTE EVERY 4 - 6 HOURS NEEDED 75 mL 1 4 Active SUMAtriptan (Imitrex) 50 MG tabletIndication s:Migraine without aura and without status migrainosus, not intractable TAKE 1 TABLET BY MOUTH AT ONSET OF MIGRAINE, MAY REPEAT DOSE IN 2 HOURS IF NEEDED 10 tablet 2 4 Active benzoyl peroxide (BENZAC AC WASH) 10 % external washIndications: Acne vulgaris Apply topically 2 times daily. Use as soap 227 g 11 4 025 Active naproxen (Naprosyn) 375 MG tablet TOME 1 TABLETA POR V A ORAL TODOS LOS D NEEDED FOR HEADACHE. TAKE WITH FOOD OR MILK 4 Active albuterol 108 (90 Base) MCG/ACT inhalerIndicatio ns:Mild intermittent asthma in adult without complication Inhale 2 puffs every 6 (six) hours if needed for wheezing or shortness of breath. 18 g 1 5 026 Active senna-docusate sodium (Senokot-S) 8.6-50 MG tabletIndication s:Constipation, unspecified constipation type Take 1 tablet by mouth Once per day. 90 tablet 1 5 026 Active Active Problems Problem Noted Date Diagnosed Date Amnesia 02/15/2023 Loss of hair 02/15/2023 Recurrent epistaxis 02/15/2023 Overview (02/15/2023): Over many years. Follows w/ ENT and has cont to have sx. Periodically remind mom to f/u there for tx and eval. H/o septoplasty w/ coblation of nasal turbinates 09/2016 Insomnia due to medical condition 02/14/2018 Cognitive developmental delay 07/24/2016 Depressive disorder 09/12/2014 Visual impairment 08/17/2012 Aggressive behavior 06/20/2012 Asthma 09/28/2011 Attention deficit hyperactivity disorder 012 Encounters Date Type Department Care Team Description 12/26/2024 9:30 AM EDT Office Visit [facility] [address] [place] [id number] Vicki Licea, ANP Mild intermittent asthma in adult without complication (Primary Dx); Constipation, unspecified constipation type 12/26/2024 Travel 12/25/2024 Telephone [facility] [address] [place] [address] Vicki Licea ANP Chart Prep 12/19/2024 Patient Outreach [facility] [address] [place] [address] Vicki Licea ANP Pre-visit Planning (Pre-visit planning - LVM ) 11/22/2024 11:00 AM EDT Office Visit [facility] [address] [place] [address] Myopia, bilateral (Primary Dx) 10/10/2024 Telephone [facility] [address] [place] [address] Vicki Licea ANP Medication Question 10/06/2024 10:30 AM EDT Office Visit [facility] [address], [place] [id number] Zhanelukasz Jamila, OD Myopia, bilateral (Primary Dx); Generalized headaches; 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 [place] fied surface antigen) 03/15/2013,02/15/2012 Influenza, seasonal, injecta ble, preservative free 05/01/2024 MMR 07/11/1998,11/08/1995 Meningococcal MPSV4 09/11/2011,02/15/2006 Moderna Covid-19 Vaccine 12+ 05/04/2021 Pfizer Covid-19 Vaccine 12+ 05/01/2024, 1,09/19/2020 Pneumococcal Conjugate PCV 20 08/24/2024 TD (adult), 2 Lf tetanus tox oid, preservative free, adsorbed 01/03/2020 Tdap 12/31/2005 Varicella 09/11/2010,12/31/2005 Family History Medical History Relation Name Comments Diabetes Maternal Grandmother Diabetes Mother's Sister Relation Name Status Comments Maternal Grandmother Mother's Sister Social History Tobacco Use Types Packs/Day Years Used Date Smoking Tobacco: Never Smokeless Tobacco: Never Tobacco Cessation:Counseling Given: Not Answered Alcohol Use Standard Drinks/Week Comments Never 0 (1 standard drink = 0.6 oz pur e alcohol) Depression Answer Date Recorded Patient Health Questionnaire-9 Score 0 05/01/2024 Patient Health Questionnaire-9 Score 0 05/01/2024 Last PHQ-9: Questionnaire Data Not on file 1 07/02/2023 Housing Stability Answer Date Recorded What is your housing situation today? I have housing today, but I am worried about losing housing in the future 05/01/[address] you li ve. Do you have problems with any of the following? None of the above 05/01/2024 Food Insecurity Answer Date Recorded Within the past 12 months, y ou worried that your food would run out before you got money to buy more: Often true 05/01/2024 Within the past 12 months,th e food you bought just didn't last and you didn't have enough money to get more: Often true 01/2024 Transportation Answer Date Recorded In the past 12 months, has l ack of transportation kept you from medical appts, meetings, work or from getting things needed for daily living? Yes, it has kept me from medical appointments or getting medications. 05/01/2024 Utilities Answer Date Recorded In the past 12 months, has t he electric, gas, oil or water company threatened to shut off services in your home? Yes 05/01/2024 Depression Answer Date Recorded Patient Health Questionnaire-2 Score 0 05/01/2024 Internet Access Answer Date Recorded Internet Access Q1 Yes 04/17/2024 Internet Access Q2 Not on file 04/17/2024 Sex and Gender Information Value Date Recorded Sex Assigned at Male 03/23/2022 10:18 AM EDT Legal Sex Male 10:18 AM EDT Gender Identity Male 03/23/2022 10:18 AM EDT Sexual Orientation Choose not to disclose 2021 10:18 AM EDT Last Filed Vital Signs Vital Sign Reading Time Taken Comments Blood Pressure 122/80 12/26/2024 9:38 AM EDT Pulse 94 12/26/2024 9:38 AM EDT Temperature 36.3 C (97.4 F) 08/24/2024 2:21 PM EDT Respiratory Rate 20 12/26/2024 9:38 AM EDT Oxygen Saturation 98% 05/01/2024 2:42 PM EST Inhaled Oxygen Concentration - - Weight 87.5 kg (193 lb) 12/26/2024 9:38 AM EDT Height 167.6 cm (5' 6 ) 12/26/2024 9:38 AM EDT Body Mass Index 31.15 12/26/2024 9:38 AM EDT Plan of Treatment Upcoming Encounters Date Type Department Care Team (Late st Contact Info) Description 02/06/2025 9:45 AM EDT Office Visit [facility] [address] [place] [address] TarJamila lal, OD [address] [place] [address] Health Maintenance Due Date Last Done Comments HIV Screening 1994 Family Planning (PISQ) 2009 Influenza Vaccine (#1) 2025 , 03/23/2023, 02/15/2023, Additional history exists Depression Screening 05/01/2025 05/01/2024, 05/01/20 24 SDOH Screening 05/01/2025 05/01/2024 Alcohol/Substance Use Screening 08/24/2025 08/24/2024 Disability Screening 12/26/2025 12/26/2024 Tobacco Screening 12/26/2025 12/26/2024 DTaP/Tdap/Td Vaccines (8 - Td or Tdap) 01/02/2030 01/03/2020, 12/31/2005, 07/11/1998, Additional history exists Zoster Vaccines (1 of 2) 2044 RSV Patients and Patients Aged 60 years or older (1 - 1-dose 75+ series) 2069 Hepatitis B Vaccines Completed 11/08/1995, 07/19/1995, 1994 HIB Vaccines Completed 09/14/1996, 10/22, 07/19/1995, Additional history exists IPV Vaccines Completed 07/11/1998, 10/22, 07/19/1995, Additional history exists Meningococcal Vaccine Aged Out 09/11/2011, 006 No longer eligible based on patient's age to complete this topic HPV Vaccines Completed 09/21/2012, 08/23, 09/11/2010 Hepatitis C Screening Completed 10/06/2021 COVID-19 Vaccine Completed 05/01/2024, 04/2021, 10/11/2020, Additional history exists Pneumococcal Vaccine: Pediatrics (0 to 5 Years) and At-Risk Patients (6 to 49) Years Completed 08/24/2024 Hepatitis A Vaccines Aged Out No long er eligible based on patient's age to complete this topic Meningococcal B Vaccine Aged Out No l onger eligible based on patient's age to complete this topic RSV under 20 months Aged Out No longe r eligible based on patient's age to complete this topic Rotavirus Vaccines Aged Out No longer eligible based on patient's age to complete this topic Procedures Procedure Name Priority Date/Time Associated Diagnosis Comments ZZZ HISTORICAL HEPATITIS C AB W/REFL TO HCV RNA, QN, PCR Routine 10/06/2021 8:13 AM EDT from Last 3 Months or Most Recently Relevant to Health Maintenance Results * HEPATITIS C AB W/REFL TO HCV RNA, QN, PCR (10/06/2021 8:13 AM EDT) HEPATITIS C ANTIBODY NON-REACT [facility] NON-REACT [facility] INDEX <0.02 <1.00 [facility] Comment: HCV antibody was non-reactive. There is no laboratory evidence of HCV infection. In most cases, no further action is required. However, if recent HCV exposure is suspected, a test for HCV RNA (test code 51797) is suggested. For additional information please refer to http://[employer].Simple Tithe/faq/WGI84r9 (This link is being provided for informational/ educational purposes only.) 10/06/2021 8:13 AM EDT us Vicki RUTLEDGE HISTORICAL/NON ORDERABLE LABS Fi nal Result [facility] [address] from Last 3 Months or Most Recently Relevant to Health Maintenance Insurance [employer] C3 Care Teams Medical Stenographer Relationship Specialty Start Date End Date Vicki Licea ANP [address] [place] [phone] PCP - General Family Medicine 01/14/21
--- NOTE | 2025-01-05 09:55 | A.OFFVIS_ITS ---
Vital Signs 01/05/25 09:55 Height 5 ft 7 in Intake Visit Reasons: Follow up Accompanied by: Mother Allergies Penicillins Allergy (Intermediate, Verified 01/05/25 09:55) SWELLING methylphenidate (From Concerta) Allergy (Verified 01/05/25 09:55) Unknown Medication List - Last Reconciled 01/05/25 by Magalis Stern CNP acetaminophen 1,000 mg PO Q6H PRN albuterol sulfate 90 mcg/actuation 2 puffs inhalation Q4-6H PRN albuterol sulfate 2.5 mg inhalation Q4-6H PRN amitriptyline 25 mg PO BEDTIME aripiprazole (Abilify) 5 mg PO DAILY benzonatate 100 mg PO TID PRN 5 days calcium carbonate (Tums E-X) 300 mg PO BID cetirizine (Zyrtec) 10 mg PO DAILY cholecalciferol (vitamin D3) (Vitamin D3) 50 mcg PO DAILY citalopram 20 mg PO DAILY dextroamphetamine-amphetamine 30 mg (Adderall) 30 mg PO DAILY doxycycline monohydrate 100 mg DAILY fluticasone propionate 50 mcg/actuation (Flonase Allergy Relief) 2 sprays intranasal DAILY fluticasone propionate 44 mcg/actuation (Flovent HFA) 2 puffs inhalation BID multivitamin 1 tab PO DAILY omeprazole 20 mg PO DAILY prednisone 40 mg (2 x 20 mg) PO DAILY 5 days psyllium seed (sugar) packets PO rizatriptan mg PO sulfamethoxazole-trimethoprim 800-160 mg (Bactrim DS) 1 tab PO BID trazodone 100 mg BEDTIME HPI Comments Details: 29-year-old man with chronic static encephalopathy, depression, insomnia, and migraine. He was doing okay. Headaches were better. They were happening few times a month. Rizatriptan as needed helped. Sleep was okay. [facility] Medical History (Updated 01/05/25 @ 09:58 by Magalis Stern CNP) Chronic static encephalopathy Depression Migraine Headache Dizziness Severe anxiety Epistaxis Asthma ADD (attention deficit disorder) Insomnia Cognitive developmental delay Social History (System 05/05/24 @ 12:05 by Isha Alcala) Patient Tobacco Use Status: Never used Tobacco Review of Systems Const Denies chills, Denies daytime sleepiness, Denies difficulty sleeping, Denies fatigue, Denies fever(s), Denies frequent falls, Reports headache(s), Denies increased appetite, Denies poor appetite, Denies snoring, Denies weakness, Denies weight gain and Denies weight loss Eyes Denies loss of vision ENT Denies vertigo, Denies dizziness and Reports headache(s) Card Denies chest pain at rest, Denies chest pain with activity, Denies syncope, Denies leg edema and Denies palpitations Resp Denies snoring GI Denies constipation, Denies heartburn, Denies diarrhea and Denies nausea Denies urinary frequency, Denies urinary incontinence and Denies urinary urgency Musc Denies abnormal gait, Denies numbness and Denies tingling Skin/Breast Denies dry skin and Denies rash Neuro Denies abnormal gait, Denies vertigo, Denies dizziness, Denies syncope, Denies frequent falls, Reports headache(s), Denies lack of coordination, Denies loss of vision, Denies memory loss, Denies numbness, Denies restless legs, Denies seizure-like activity, Denies tingling, Denies paresthesias, Denies tremor(s) and Denies weakness Psych Denies anxiety, Denies depression, Denies auditory hallucinations, Denies memory loss, Denies visual hallucinations and Denies suicidal ideation Endo Denies fatigue and Denies palpitations Physical Exam Const Other: General Appearance:? normal, in no acute distress. Skin:? no rashes, no significant birthmarks. Heart:? S1, S2 normal, no murmurs. Lungs:? clear anteriorly and posteriorly. Extremities:? no edema. Psych:? alert, oriented, cognitive function intact, cooperative with exam. Neuro Other: Mental Status:?Alert and awake with soft but normal sp speech, fluency, and comprehension.? Cranial Nerves:?Pupils are equal, round and reactive to light. External occular muscles are intact. Visual mooney are full. Face is symmetrical. Facial sensations are normal. Tongue is midline. Palate elevates symmetrically. Shoulder shrugging is normal. Hearing to bedside conversation is normal. Sensory Exam:?....? Coordination:?No ataxia,?no titubation.? Gait Exam: Within normal limits. Extrapyramidal System:?No tremor, rigidity with normal facial expressions.? Pronator Drift:?Not present.? Involuntary Movements:?No tremors seen.? Speech:?Normal.? Results Reviewed Results Reviewed: CT brain WO at [facility] in 04/2023: WNL Assessment & Plan Assessment & Plan (1) Migraine without aura: Code(s): G43.009 - Migraine without aura, not intractable, without status migrainosus Category: Medical Qualifiers: Status migrainosus presence: without status migrainosus Intractability: not intractable Qualified Code(s): G43.009 - Migraine without aura, not intractable, without status migrainosus Plan: Continue amitriptyline 25mg 1 tablet at bedtime. Continue rizatriptan 10mg 1 tablet as needed for migraine. (2) Chronic static encephalopathy: Code(s): G93.49 - Other encephalopathy Category: Medical Plan Meds tried: Sumatriptan, naproxen, rizatriptan, amitriptyline Medications: New rizatriptan take 1 tab at onset of headache; if no relief may repeat 1 tab after at least 4 hrs; max = 2 tabs/24 hr PO 10 tabs 5RF 30 days Changed From amitriptyline 25 mg PO BEDTIME To amitriptyline 25 mg PO BEDTIME 90 tabs 1RF 90 days Discontinued rizatriptan Discontinued Reason: Order PO Coding Level of Care Code Est Pt Level 3 (94926) Diagnoses Migraine without aura and without status migrainosus, not intractable G43.009 Status migrainosus presence: without status migrainosus Intractability: not intractable Chronic static encephalopathy G93.49
== END 2025-01-05 10:05 | disposition home or self-care (01) ==
LOC: HO.HSM 08:52
PROVIDERS: PCP Nurse Practitioner Primary Care; Visit Provider Registered Nurse
DX: G43.009 Migraine without aura, not intractable, without status migrainosus (principal); G93.49 Other encephalopathy
CPT/HCPCS: 99213

== ENCOUNTER → 2025-01-05 08:52 | Outpatient (BNVA) | payer MEDICAID, SELFPAY | PROVIDERS: PCP Nurse Practitioner Primary Care; Visit Provider Registered Nurse | DX: G43.009 Migraine without aura, not intractable, without status migrainosus (principal); G93.49 Other encephalopathy | CPT/HCPCS: 99212 ==